=== PATIENT | female | born 1990 | race Caucasian/White ===

== ENCOUNTER 2017-12-03 17:01 | Emergency (ER) | payer SELFPAY ==
[2017-12-03 17:19] VITALS: BP 137/69
--- NOTE | 2017-12-03 17:23 | ER Document Report ---
ED General - General Chief Complaint: Sore Throat Stated Complaint: SORE THROAT Time Seen by Provider: 12/03/17 17:22 Mode of Arrival: Ambulatory Information source: Patient TRAVEL OUTSIDE OF THE [place] IN LAST 30 DAYS: No - HPI Notes: 27-year-old female presents today with complaints of sore throat 1 day, reports pain with swallowing. Eating and drinking without issues. 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 Denies any fevers or chills. Has been drinking and eating without issues. Denies any rashes. Worse with time, nothing makes better. States pain is 4 out of 10. Denies fevers, chills, chest pain,palpitations, shortness of breath, difficulty swallowing foods, trismus, dyspnea, nausea, vomiting, diarrhea, abdominal pain, hematuria,blurred vision, double vision, loss of vision, speech changes, LH, dizziness, syncope, headaches, wheezing, ST, URI, neck pain, weakness, bowel or bladder dysfunction, saddle anesthesia, numbness or tingling in bilateral upper or lower extremities equally, muscle paralysis, weakness in bilateral upper or lower extremities equally or rash. Denies IV drug use. - Related Data Allergies/Adverse Reactions: No Known Allergies Allergy (Unverified 12/03/17 17:14) Past Medical History - General Information source: Patient - Social History Smoking Status: Never Smoker Family History: Reviewed & Not Pertinent Review of Systems - Review of Systems Notes: REVIEW OF SYSTEMS: CONSTITUTIONAL : Denies fever, chills, or sweats. Denies recent illness. EENT: Denies eye, ear, throat, or mouth pain or symptoms. Denies nasal or sinus congestion or discharge. Reports sore throat. Denies tongue, or mouth swelling or difficulty swallowing. CARDIOVASCULAR: Denies chest pain. Denies palpitations or racing or irregular heart beat. Denies ankle edema. RESPIRATORY: Denies cough, cold, or chest congestion. Denies shortness of breath, difficulty breathing, or wheezing. GASTROINTESTINAL: Denies abdominal pain or distention. Denies nausea, vomiting , or diarrhea. Denies blood in vomitus, stools, or per rectum. Denies black, tarry stools. Denies constipation. GENITOURINARY: Denies difficulty urinating, painful urination, burning, frequency, blood in urine, or discharge. FEMALE GENITOURINARY: Denies vaginal bleeding, heavy or abnormal periods, irregular periods. Denies vaginal discharge or odor. MUSCULOSKELETAL: Denies back or neck pain or stiffness. Denies joint pain or swelling. SKIN: Denies rash, lesions or sores. HEMATOLOGIC : Denies easy bruising or bleeding. LYMPHATIC: Denies swollen, enlarged glands. NEUROLOGICAL: Denies confusion or altered mental status. Denies passing out or loss of consciousness. Denies dizziness or lightheadedness. Denies headache. Denies weakness or paralysis or loss of use of either side. Denies problems with gait or speech. Denies sensory loss, numbness, or tingling. Denies seizures. PSYCHIATRIC: Denies anxiety or stress. Denies depression, suicidal ideation, or homicidal ideation. ALL OTHER SYSTEMS REVIEWED AND NEGATIVE. Dictation was performed using TDX voice recognition software Physical Exam - Vital signs Vitals: Temp Pulse Resp BP Pulse Ox 99.1 F 95 16 137/69 H 99 12/03/17 17:17 12/03/17 17:17 12/03/17 17:17 12/03/17 17:17 12/03/17 17:17 - Notes Notes: PHYSICAL EXAMINATION: GENERAL: Well-appearing, well-nourished and in no acute distress. HEAD: Atraumatic, normocephalic. EYES: Pupils equal round and reactive to light, extraocular movements intact, conjunctiva are normal. ENT: Nares patent, oropharynx clear without exudates. Moist mucous membranes. tympanic membranes are normal appearing with pearly color, normal-appearing landmarks and normal light reflex. Hearing is grossly intact. The nasal mucosa is moist. The septum is midline. There is no evidence of septal hematoma. The turbinates are without abnormality. No obvious abnormalities to the lips. The teeth are unremarkable. The gingivae are without any obvious evidence of infection. The oral mucosa is moist and pink. There are no obvious masses to the hard or soft palate. The uvula is midline. The salivary glands appear unremarkable. The tongue is midline. The posterior pharynx is without erythema or exudate. The tonsils are normal appearing. No swelling no erythema no exudate no angioedema no drooling no trismus bilateral arches equal. Uvula midline. NECK: Normal range of motion, supple without lymphadenopathy LUNGS: Breath sounds clear to auscultation bilaterally and equal. No wheezes rales or rhonchi. HEART: Regular rate and rhythm without murmurs ABDOMEN: Soft, nontender, nondistended abdomen. No guarding, no rebound. No masses appreciated. Female : deferred Musculoskeletal: Normal range of motion, no pitting or edema. No cyanosis. NEUROLOGICAL: Cranial nerves grossly intact. Normal speech, normal gait. Normal sensory, motor exams PSYCH: Normal mood, normal affect. SKIN: Warm, Dry, normal turgor, no rashes or lesions noted. Course - Re-evaluation Re-evalutation: 12/03/17 18:24 Patient is a employee at a [employer], high likelihood of having strep throat. Will empirically treat her, throat culture has been ordered. Rapid strep is negative. Advised patient to use salt water gargles, take [id number] ibuprofen and Tylenol as needed for pain. I asked patient if any symptoms become worse return to the emergency room After performing a Medical Screening Examination, I estimate there is LOW risk for ACUTE CORONARY SYNDROME, retropharyngeal abscess, Peritonsillar abscess, PULMONARY EMBOLI, RESPIRATORY FAILURE, SEPSIS OR MENINGITIS, thus I consider the discharge disposition reasonable. I have reevaluated this patient multiple times and no significant life threatening changes are noted. The patient and I have discussed the diagnosis and risks, and we agree with discharging home with close follow-up. We also discussed returning to the Emergency Department immediately if new or worsening symptoms occur. We have discussed the symptoms which are most concerning (e.g., changing or worsening pain, trouble swallowing or breathing, neck stiffness, fever) that necessitate immediate return. - Vital Signs Vital signs: Temp Pulse Resp BP Pulse Ox 99.1 F 95 16 137/69 H 99 12/03/17 17:17 12/03/17 17:17 12/03/17 17:17 12/03/17 17:17 12/03/17 17:17 Discharge - Discharge Clinical Impression: Pharyngitis Qualifiers: Pharyngitis/tonsillitis etiology: other specified organisms Qualified Code(s): J02.8 - Acute pharyngitis due to other specified organisms Condition: Good Disposition: HOME, SELF-CARE Instructions: Strep Throat ([facility]), Sore Throat ([facility]) Additional Instructions: Sore Throat Sore throats may be caused by viruses, bacteria, or fungi. Most are due to a virus, and must get better on their own. Bacterial sore throats, particularly those due to "strep," need treatment with antibiotics. If an antibiotic is prescribed, be sure to take the medication for a full 10 days. Failure to take the antibiotic can result in complications such as rheumatic fever. Sometimes, an injection of antibiotics is given instead of pills or liquid. This single "shot" is equal in effectiveness to the oral medication. To relieve symptoms, take acetaminophen for pain. Sip clear liquids frequently, or eat popsicles or ice chips. Anesthetic sprays or lozenges may help. Make sure the air in the room is not too dry. Avoid using decongestants or antihistamines. Call the doctor if there is no improvement in two days, or if you have difficulty breathing, increasing throat pain, high fever, rash, or frequent vomiting. Return immediately for any new or worsening symptoms Such as fever, chills, difficulty swallowing, drooling neck pain, or any worsening symptoms, Follow up with primary care provider, call tomorrow to make followup appointment. Prescriptions: Amoxicillin Trihydrate [Amoxil 500 mg Capsule] 500 mg PO TID #30 capsule Referrals: JOE MORALES MD [Primary Care Provider] - Follow up in 3-5 days
== END 2017-12-03 18:26 | disposition home or self-care (01) ==
LOC: ER 17:01
DX: J02.9 Acute pharyngitis, unspecified (principal); Z20.818 Contact with and (suspected) exposure to other bacterial communicable diseases
CPT/HCPCS: 87070; 87880; 99283

== ENCOUNTER 2018-01-18 14:25 | Emergency (ER) | payer SELFPAY ==
[2018-01-18 14:37] VITALS: BP 125/67
--- NOTE | 2018-01-18 14:53 | ER Document Report ---
ED Neck/Back Problem - General Chief Complaint: Neck Pain >24hrs old Stated Complaint: HEAD AND NECK PAIN Time Seen by Provider: 01/18/18 14:42 Notes: Patient is a 27-year-old female complaining of right-sided neck pain 3 days. Patient denies any trauma, fever, radiculopathy or paresthesia. Pain is aggravated with any head movement TRAVEL OUTSIDE OF THE [place] IN LAST 30 DAYS: No - HPI Patient complains to provider of: Pain, Neck Onset: Other - 3 days Timing: Constant Quality of pain: Achy Recent injury: No Associated symptoms: None Exacerbated by: Movement of neck Relieved by: Nothing Similar symptoms previously: No Recently seen / treated by doctor: No - Related Data Allergies/Adverse Reactions: No Known Allergies Allergy (Verified 01/18/18 14:26) Past Medical History - General Information source: Patient - Social History Smoking Status: Never Smoker Chew tobacco use (# tins/day): No Frequency of alcohol use: None Drug Abuse: None Lives with: Family Family History: Reviewed & Not Pertinent Patient has suicidal ideation: No Patient has homicidal ideation: No - Medical History Medical History: Negative Renal/ Medical History: Denies: Hx Peritoneal Dialysis Review of Systems - Review of Systems Constitutional: No symptoms reported EENT: No symptoms reported Cardiovascular: No symptoms reported Respiratory: No symptoms reported Gastrointestinal: No symptoms reported Genitourinary: No symptoms reported Female Genitourinary: No symptoms reported Musculoskeletal: See HPI Skin: No symptoms reported Hematologic/Lymphatic: No symptoms reported Neurological/Psychological: No symptoms reported Physical Exam - Vital signs Vitals: Temp Pulse Resp BP Pulse Ox 98.2 F 74 16 125/67 98 01/18/18 14:36 01/18/18 14:36 01/18/18 14:36 01/18/18 14:36 01/18/18 14:36 Interpretation: Normal - General General appearance: Appears well, Alert - HEENT Head: Normocephalic, Atraumatic Eyes: Normal Pupils: PERRL Neck: Other - Focal right trapezius muscle tenderness. No cervical tenderness - Respiratory Respiratory status: No respiratory distress Chest status: Nontender Breath sounds: Normal Chest palpation: Normal - Cardiovascular Rhythm: Regular Heart sounds: Normal auscultation Murmur: No - Abdominal Inspection: Normal Distension: No distension Bowel sounds: Normal Tenderness: Nontender Organomegaly: No organomegaly - Back Back: Normal, Nontender - Extremities General upper extremity: Normal inspection, Nontender, Normal color, Normal ROM , Normal temperature General lower extremity: Normal inspection, Nontender, Normal color, Normal ROM , Normal temperature, Normal weight bearing. No: Jose Juan's sign - Neurological Neuro grossly intact: Yes Cognition: Normal Orientation: AAOx4 [place] Coma Scale Eye Opening: Spontaneous [place] Coma Scale Verbal: Oriented [place] Coma Scale Motor: Obeys Commands [place] Coma Scale Total: 15 Speech: Normal Motor strength normal: LUE, RUE, LLE, RLE Sensory: Normal - Psychological Associated symptoms: Normal affect, Normal mood - Skin Skin Temperature: Warm Skin Moisture: Dry Skin Color: Normal Course - Re-evaluation Re-evalutation: 01/18/18 14:51 History and physical are consistent with a torticollis. Patient has focal trapezius muscle tenderness. Patient is showing no symptoms of meningitis or sepsis. I will write a short course of muscle relaxant and anti-inflammatory medicine. I recommended topical anesthetic and gentle stretches as demonstrated. Home care, primary care follow-up and ED return precautions discussed with patient. Patient acknowledges understanding and is stable for discharge - Vital Signs Vital signs: Temp Pulse Resp BP Pulse Ox 98.2 F 74 16 125/67 98 01/18/18 14:36 01/18/18 14:36 01/18/18 14:36 01/18/18 14:36 01/18/18 14:36 Discharge - Discharge Clinical Impression: Neck pain, Muscle strain Condition: Stable Disposition: HOME, SELF-CARE Instructions: Muscle Strain ([facility]), Muscle Relaxers ([facility]), Ibuprofen (General) ( [facility]), Warm Packs ([facility]) Additional Instructions: Your pain is consistent with a trapezius muscle strain I recommend alternating ice and heat to the area as well as a topical anesthetic such as Aspercreme with lidocaine I am prescribing a short course of muscle relaxant and anti-inflammatory medication. Take those as prescribed follow-up with your primary care provider if pain persists more than 10 days. Return to the ER for any worsening Prescriptions: Ibuprofen [Motrin 800 Mg Tablet] 800 mg PO Q6H #20 tablet Methocarbamol [Robaxin 500 Mg Tablet] 1,000 mg PO Q6 #30 tablet Forms: Return to Work
== END 2018-01-18 15:02 | disposition home or self-care (01) ==
LOC: ER 14:25
DX: T14.8XXA Other injury of unspecified body region, initial encounter (principal); M54.2 Cervicalgia; X58.XXXA Exposure to other specified factors, initial encounter
CPT/HCPCS: 99283

== ENCOUNTER 2018-05-08 09:53 | Emergency (ER) | payer SELFPAY ==
[2018-05-08 09:58] VITALS: BP 129/71
--- NOTE | 2018-05-08 10:45 | ER Document Report ---
ED Extremity Problem, Lower - General Chief Complaint: Leg Swelling Stated Complaint: LEG AND ANKLE SWELLING Time Seen by Provider: 05/08/18 10:05 Mode of Arrival: Ambulatory Information source: Patient Notes: 27-year-old female presented to ED for complaint of pain from her knee to her toe bilaterally more painful on the right. She does not smoke she does not use any hormone she has not been on any recent trip she has not had any surgery and she does not have a history of cancer. She states this been going on for over a month now and it is now more painful on the right than the left. TRAVEL OUTSIDE OF THE [place] IN LAST 30 DAYS: No - HPI Patient complains to provider of: Pain, Swelling. No: Injury Location: Leg Occurred: Other Onset/Duration: Gradual - Was in a month Quality of pain: Pressure Severity: Moderate Pain Level: 3 Context: Other - Pain in bilateral legs worse on the right no risk factors for DVT Recent injury: No Associated symptoms: Painful ambulation, Other - Pain is been for more than a month no risk factors for DVT Exacerbated by: Other - When laying down Relieved by: Other - When up and walking - Related Data Allergies/Adverse Reactions: No Known Allergies Allergy (Verified 05/08/18 09:54) Past Medical History - General Information source: Patient - Social History Smoking Status: Never Smoker Cigarette use (# per day): No Chew tobacco use (# tins/day): No Smoking Education Provided: No Frequency of alcohol use: Occasional Drug Abuse: None Lives with: Family Family History: Reviewed & Not Pertinent Patient has suicidal ideation: No Patient has homicidal ideation: No - Past Medical History Cardiac Medical History: Reports: None Pulmonary Medical History: Reports: None EENT Medical History: Reports: None Neurological Medical History: Reports: None Endocrine Medical History: Reports: None Renal/ Medical History: Reports: None Malignancy Medical History: Reports: None GI Medical History: Reports: None Musculoskeletal Medical History: Reports None Skin Medical History: Reports None Psychiatric Medical History: Reports: None Traumatic Medical History: Reports: None Infectious Medical History: Reports: None Surgical Hx: Negative Past Surgical History: Reports: None - Immunizations Immunizations up to date: Yes Review of Systems - Review of Systems Constitutional: No symptoms reported EENT: No symptoms reported Cardiovascular: No symptoms reported Respiratory: No symptoms reported Gastrointestinal: No symptoms reported Genitourinary: No symptoms reported Female Genitourinary: No symptoms reported Musculoskeletal: Other - Pain bilateral lower legs Skin: No symptoms reported Hematologic/Lymphatic: No symptoms reported Neurological/Psychological: No symptoms reported -: Yes All other systems reviewed and negative Physical Exam - Vital signs Vitals: Temp Pulse Resp BP Pulse Ox 97.7 F 102 H 16 129/71 H 99 05/08/18 09:57 05/08/18 09:57 05/08/18 09:57 05/08/18 09:57 05/08/18 09:57 Interpretation: Normal - General General appearance: Appears well, Alert - HEENT Head: Normocephalic, Atraumatic Eyes: Normal Pupils: PERRL - Respiratory Respiratory status: No respiratory distress Chest status: Nontender Breath sounds: Normal Chest palpation: Normal - Cardiovascular Rhythm: Regular Heart sounds: Normal auscultation Murmur: No - Abdominal Inspection: Normal Distension: No distension Bowel sounds: Normal Tenderness: Nontender Organomegaly: No organomegaly - Back Back: Normal, Nontender - Extremities General upper extremity: Normal inspection, Nontender, Normal color, Normal ROM , Normal temperature General lower extremity: Normal inspection, Nontender, Normal color, Normal ROM , Normal temperature, Normal weight bearing. No: Jose Juan's sign Calf: Tender - Front of the legs. No: Ecchymosis Ankle: No: Tender, Ecchymosis, Edema Foot: No evidence of FB, Other - Refills less than 3 seconds good pedal pulses. No: Tender, Abrasion, Deformity, Ecchymosis, Edema, Instability, Laceration, Metatarsal compress. pain, Nail injury, Navicular tenderness, Puncture wound, Tender 5th metatarsal - Neurological Neuro grossly intact: Yes Cognition: Normal Orientation: AAOx4 [place] Coma Scale Eye Opening: Spontaneous [place] Coma Scale Verbal: Oriented [place] Coma Scale Motor: Obeys Commands [place] Coma Scale Total: 15 Speech: Normal Motor strength normal: LUE, RUE, LLE, RLE Sensory: Normal - Psychological Associated symptoms: Normal affect, Normal mood - Skin Skin Temperature: Warm Skin Moisture: Dry Skin Color: Normal Course - Vital Signs Vital signs: Temp Pulse Resp BP Pulse Ox 97.7 F 102 H 16 129/71 H 99 05/08/18 10:53 05/08/18 10:53 05/08/18 10:53 05/08/18 10:53 05/08/18 10:53 Discharge - Discharge Clinical Impression: Bilateral leg pain Condition: Stable Disposition: HOME, SELF-CARE Additional Instructions: Leg Pain, Nonspecific We did not find an obvious cause for your leg pain. There's no sign of blood clot, infection, or other serious disease. Possible causes of vague leg pain include muscle or joint inflammation, disc disease in the lower back, pressure on the nerves in the back, or reduced blood flow through the arteries of the leg. Rest the leg. Pain can be eased with an antiinflammatory pain medicine such as ibuprofen. If the pain involves a small area, a heating pad might help. Call the doctor or return if the leg becomes swollen, weak, discolored, or increasingly painful, or if you develop any other significant change in your health. Ibuprofen Ibuprofen is an excellent, safe drug for pain control. In addition, it has potent antiinflammatory effects which are beneficial, especially in the treatment of injuries, arthritis, or tendonitis. It's best to take ibuprofen with food. Persons with ulcer disease or allergy to aspirin should notify their physician of this before taking ibuprofen. Take the medication exactly as prescribed. Don't take additional doses unless instructed to do so by your doctor. If you develop wheezing, shortness of breath, hives, faintness, stomach pain, vomiting, or dark black stools, return for re-evaluation at once. FOLLOW-UP CARE: If you have been referred to a physician for follow-up care, call the physician s office for an appointment as you were instructed or within the next two days. If you experience worsening or a significant change in your symptoms, notify the physician immediately or return to the Emergency Department at any time for re-evaluation. Forms: Elevated Blood Pressure Referrals: JOE MORALES MD [Primary Care Provider] - Follow up tomorrow
== END 2018-05-08 10:55 | disposition home or self-care (01) ==
LOC: ER 09:53
DX: M79.662 Pain in left lower leg (principal); M79.661 Pain in right lower leg
CPT/HCPCS: 99283

== ENCOUNTER 2019-05-25 09:18 | Outpatient (CLI) | payer OTHER ==
[2019-05-25] MEDS ORDERED: RINGERS SOLUTION,LACTATED 1,000 ML IV ONE (09:35)
[2019-05-25] MEDS ORDERED: RINGERS SOLUTION,LACTATED 1,000 ML IV PRN (09:35)
[2019-05-25] MEDS ORDERED: ONDANSETRON HCL INJ/PF 4 MG/2 ML SDV IV ONE (09:36)
[2019-05-25] MEDS ORDERED: ONDANSETRON HCL INJ/PF 4 MG/2 ML SDV ONE (09:50)
[2019-05-25 10:18] LABS: APPEARANCE,URINE SLIGHTLY-CLOUDY; BILIRUBIN,URINE NEGATIVE (NEGATIVE); COLOR,URINE YELLOW; GLUCOSE, URINE NEGATIVE (NEGATIVE); KETONES,URINE 20 mg/dL (NEGATIVE); LEUKOCYTE ESTERASE,URINE NEGATIVE (NEGATIVE); NITRITE,URINE NEGATIVE (NEGATIVE); PROTEIN,URINE NEGATIVE (NEGATIVE); URINE SPECIFIC GRAVITY 1.024; UROBILINOGEN,URINE NEGATIVE mg/dL (<2.0)
--- NOTE | 2019-05-25 10:43 | Non Stress Test Report ---
Non Stress Test Datetime Report Generated by CPN: 05/25/2019 10:43 DEMOGRAPHIC EGA NST: 34.0 INDICATION Indication for Study: Ordered by Provider VITAL SIGNS Temperature - NST: 99.1 Pulse - NST: 97 RESP - NST: 15 NBPSYS NST: 131 NBPDIA NST: 63 MONITORING Monitor Explained: Monitor Explained; Test Explained; Patient Verbalized Understanding Time on Monitor: 05/25/2019 10:15 Time off Monitor: 05/25/2019 10:35 NST Duration: 20 NST INTERVENTIONS NST Interventions: PO Hydration; IV Fluids Physician Notified NST: N. Mills CNM BABY A: [id number] BABY A Movement : Present Contraction Frequency : irritability FHR Baseline : 140 Accelerations : 15X15 Decelerations : None Variability : Moderate 6-25bpm NST Review: Meets Criteria for Reactive NST NST Review and Verified By : Ramiro Joshua RN NST Results: Reactive NST REPORT Report Trigger: Send Report
[2019-05-25 11:09] LABS: ABSOLUTE EOSINOPHILS # (AUTO) 0.1 10^3/uL (0.0-0.6); ABSOLUTE LYMPHOCYTES (AUTO) 0.5 10^3/uL (0.5-4.7); ABSOLUTE MONOCYTES (AUTO) 0.6 10^3/uL (0.1-1.4); ABSOLUTE NEUT (AUTO) 8.9 10^3/uL (1.7-8.2); BASOPHILS % (AUTO) 0.3 % (0-2); EOSINOPHILS % (AUTO) 0.7 % (0-6); HEMATOCRIT 33.8 % (36.0-47.0); HEMOGLOBIN 11.3 g/dL (12.0-15.5); LYMPHOCYTES % (AUTO) 5.4 % (13-45); MEAN CORPUSCULAR HEMOGLOBIN 27.7 pg (27.0-33.4); MEAN CORPUSCULAR HGB CONC 33.4 g/dL (32.0-36.0); MEAN CORPUSCULAR VOLUME 83 fl (80-97); MONOCYTES % (AUTO) 5.8 % (3-13); PLATELET COUNT 184 10^3/uL (150-450); RED BLOOD COUNT 4.08 10^6/uL (3.72-5.28); RED CELL DISTRIBUTION WIDTH 12.9 % (11.5-14.0); SEGMENTED NEUTROPHILS % (AUTO) 87.8 % (42-78); TOTAL CELLS COUNTED % (AUTO) 100 %; WHITE BLOOD COUNT 10.1 10^3/uL (4.0-10.5)
[2019-05-25 11:27] LABS: ALKALINE PHOSPHATASE 95 U/L (38-126); ANION GAP 7 (5-19); ASPARTATE AMINO TRANSFERASE 21 U/L (14-36); BILIRUBIN,DIRECT 0.1 mg/dL (0.0-0.4); BILIRUBIN,TOTAL 0.4 mg/dL (0.2-1.3); BLOOD UREA NITROGEN 11 mg/dL (7-20); CALCIUM 8.4 mg/dL (8.4-10.2); CARBON DIOXIDE 21 mmol/L (22-30); CHLORIDE 107 mmol/L (98-107); GLUCOSE 97 mg/dL (75-110); POTASSIUM 4.1 mmol/L (3.6-5.0); TOTAL PROTEIN 5.5 g/dL (6.3-8.2)
== END 2019-05-25 11:42 | disposition home or self-care (01) ==
LOC: LC 09:18
PROVIDERS: ATTEND Obstetrics & Gynecology
PROC: 4A1HXCZ Monitoring of Products of Conception, Cardiac Rate, External Approach (ICD-10-PCS; principal; 2019-05-25)
DX: O99.613 Diseases of the digestive system complicating pregnancy, third trimester (principal); K52.9 Noninfective gastroenteritis and colitis, unspecified; O99.283 Endocrine, nutritional and metabolic diseases complicating pregnancy, third trimester; E86.0 Dehydration; Z3A.34 34 weeks gestation of pregnancy
CPT/HCPCS: 59025; 36415; 85025; 80053; 81001; J2405

== ENCOUNTER 2019-07-02 16:14 | Outpatient (CLI) | payer OTHER ==
--- NOTE | 2019-07-02 16:51 | Non Stress Test Report ---
Non Stress Test Datetime Report Generated by CPN: 07/02/2019 16:50 DEMOGRAPHIC EGA NST: 39.3 INDICATION Indication for Study: Ordered by Provider MONITORING Monitor Explained: Monitor Explained; Test Explained; Patient Verbalized Understanding Time on Monitor: 07/02/2019 16:21 Time off Monitor: 07/02/2019 16:41 NST Duration: 20 NST INTERVENTIONS NST Interventions: PO Hydration Physician Notified NST: j. allan cnm BABY A: [id number] BABY A Movement : Present Contraction Frequency : 7 FHR Baseline : 140 Accelerations : 15X15 Variability : Moderate 6-25bpm NST Review: Meets Criteria for Reactive NST NST Review and Verified By : RAYNA Molina Results: Reactive NST REPORT Report Trigger: Send Report
== END 2019-07-02 16:50 | disposition home or self-care (01) ==
LOC: LC 16:14
PROVIDERS: ATTEND Obstetrics & Gynecology
PROC: 4A1HXCZ Monitoring of Products of Conception, Cardiac Rate, External Approach (ICD-10-PCS; principal; 2019-07-02)
DX: Z34.93 Encounter for supervision of normal pregnancy, unspecified, third trimester (principal)
CPT/HCPCS: 59025

== ENCOUNTER 2019-07-02 21:05 | Inpatient (IN) | payer OTHER ==
[2019-07-02 21:50] LABS: APPEARANCE,URINE SLIGHTLY-CLOUDY; BILIRUBIN,URINE NEGATIVE (NEGATIVE); COLOR,URINE YELLOW; GLUCOSE, URINE NEGATIVE (NEGATIVE); KETONES,URINE NEGATIVE (NEGATIVE); LEUKOCYTE ESTERASE,URINE NEGATIVE (NEGATIVE); NITRITE,URINE NEGATIVE (NEGATIVE); PROTEIN,URINE NEGATIVE (NEGATIVE); URINE SPECIFIC GRAVITY 1.024; UROBILINOGEN,URINE NEGATIVE mg/dL (<2.0)
[2019-07-02 21:53] LABS: ABSOLUTE EOSINOPHILS # (AUTO) 0.3 10^3/uL (0.0-0.6); ABSOLUTE LYMPHOCYTES (AUTO) 1.8 10^3/uL (0.5-4.7); ABSOLUTE NEUT (AUTO) 8.2 10^3/uL (1.7-8.2); BASOPHILS % (AUTO) 0.3 % (0-2); EOSINOPHILS % (AUTO) 2.7 % (0-6); HEMATOCRIT 34.2 % (36.0-47.0); HEMOGLOBIN 11.5 g/dL (12.0-15.5); LYMPHOCYTES % (AUTO) 16.3 % (13-45); MEAN CORPUSCULAR HEMOGLOBIN 27.6 pg (27.0-33.4); MEAN CORPUSCULAR HGB CONC 33.7 g/dL (32.0-36.0); MEAN CORPUSCULAR VOLUME 82 fl (80-97); MONOCYTES % (AUTO) 8.4 % (3-13); PLATELET COUNT 252 10^3/uL (150-450); RED BLOOD COUNT 4.18 10^6/uL (3.72-5.28); RED CELL DISTRIBUTION WIDTH 13.7 % (11.5-14.0); SEGMENTED NEUTROPHILS % (AUTO) 72.3 % (42-78); TOTAL CELLS COUNTED % (AUTO) 100 %; WHITE BLOOD COUNT 11.3 10^3/uL (4.0-10.5)
[2019-07-02 22:07] LABS: URINE AMPHETAMINES SCREEN NEGATIVE; URINE BARBITURATES SCREEN NEGATIVE; URINE BENZODIAZEPINES SCREEN NEGATIVE; URINE COCAINE SCREEN NEGATIVE; URINE MARIJUANA (THC) SCREEN NEGATIVE; URINE METHADONE SCREEN NEGATIVE; URINE PHENCYCLIDINE SCREEN NEGATIVE
[2019-07-02] MEDS ORDERED: PENICILLIN G POTASSIUM 5,000,000 UNIT in DEXTROSE 5%-WATER 100 ML IV ONE (22:11)
[2019-07-02] MEDS ORDERED: RINGERS SOLUTION,LACTATED 300 ML IV ONE (22:11)
[2019-07-02] MEDS ORDERED: ACETAMINOPHEN 325 MG TABLET PO PRN (22:11)
[2019-07-02] MEDS ORDERED: ZOLPIDEM TARTRATE 5 MG TABLET PO PRN (22:11)
[2019-07-02] MEDS ORDERED: RINGERS SOLUTION,LACTATED 1,000 ML IV PRN (22:11)
[2019-07-02] MEDS ORDERED: MAG HYDROX/AL HYDROX/SIMETH SUSP 30 ML UDCUP PO PRN (22:11)
[2019-07-02] MEDS ORDERED: DINOPROSTONE 10 MG VAGINAL INSERT.SR PV ONE (22:11)
[2019-07-02] MEDS ORDERED: DINOPROSTONE 10 MG VAGINAL INSERT.SR ONE (22:15)
--- NOTE | 2019-07-02 23:47 | Admission Physical ---
Datetime Report Generated by CPN: 07/02/2019 23:47 CURRENT ADMISSION Chief Complaint: Scheduled Induction of Labor Indication for Induction: Macrosomia Indication for Induction- Other: GDM Admit Impression : Term, Intrauterine ; Intact Membranes Admit Plan: Admit to Unit; Initiate Labor Induction Protocol ALLERGIES Medication Allergies: No Medication Allergies: No Known Allergies (07/02/2019) Latex: No Latex Allergies Food Allergies: none Environmental Allergies: pollen, dust OBSTETRICAL HISTORY EDC: 07/06/2019 00:00 : 1 Para: 0 Term: 0 : 0 SAB: 0 IAB: 0 Ectopic: 0 Livin Cesareans: 0 VBACs: 0 Multiple Births: 0 Gestational Diabetes: Yes Rh Sensitization: No Incompetent Cervix: No SHERYL: No Infertility: No ART Treatment: No Uterine Anomaly: No IUGR: No Hx Previous C/S: No Macrosomia: No Hx Loss/Stillborn: No PIH: No Hx : No Placenta Previa/Abruption: No Depression/PP Depression: No PTL/PROM: No Post Hemorrhage: No Current Procedures: Ultrasound; NST Obstetrical History Comments: G-1 GDM on meds, current SEE RECORDS Alcohol: No Marijuana : No Cocaine: No Other Illicit Drugs: No Cigarettes: Never Smoker. 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 Heart Disease: No Hosp/Surgery: No Autoimmune Disorder: No Anesthetic Complications: No Kidney Disease: No Abnormal Pap Smear: No Neuro/Epilepsy: No Psychiatric Disorders: No Other Medical Diseases: No Hepatitis/Liver Disease: No Significant Family History: No Varicosities/Phlebitis: No Trauma/Violence : No Thyroid Dysfunction: No INFECTIOUS HISTORY Gonorrhea: No Genital Herpes: No Chlamydia: No Tuberculosis: No Syphilis: No Hepatitis: No HIV/AIDS Exposure: No Rash or Viral Illness: No HPV: No PHYSICAL EXAM General: Normal HEENT: Normal Neurologic: Normal Thyroid: Normal Heart: Normal Lungs: Normal Breast: Deferred Back: Normal Abdomen: Normal Genitourinary Exam: Normal Extremities: Normal DTRs: Normal Pelvic Type: Adequate Vital Signs: Reviewed VAGINAL EXAM Dilatation: 0 Effacement: 0 Station: -3 MEMBRANES Membranes: Intact FETUS A EGA: 39.3 Monitoring: External US FHR- Baseline: 140 Variability: Moderate 6-25bpm Decelerations: None FHR Category: Category I Presentation: Vertex Admit Comment: Estimated weight is 10 lb 12 oz. PLANS FOR LABOR AND DELIVERY Labor and Delivery: None Pain Management: Medications; Epidural Feeding Preference: Breast Benefit of Breast Feed Discussed: Yes Circumcision: N/A INFORMED CONSENT Signature: with User ID: [email or web address]
[2019-07-03] MEDS ORDERED: MISOPROSTOL 0.1 MG TABLET ONE (11:52)
[2019-07-03] MEDS: MISOPROSTOL 0.1 MG TABLET PV SCH ×2 (12:27→16:23)
[2019-07-03] MEDS: MISOPROSTOL 0.1 MG TABLET PO SCH ×2 (12:27→16:23)
[2019-07-03] MEDS ORDERED: CEFAZOLIN 1 GM/D5W RTU 2 GM/100 ML RTUPB IV ONE (13:44)
[2019-07-03] MEDS ORDERED: CITRIC ACID/SODIUM CITRATE ORAL SOLN 15 ML UDCUP ONE (13:44)
[2019-07-03] MEDS ORDERED: OXYTOCIN 10 UNIT/ML VIAL ONE ×2 (14:11→14:52)
[2019-07-03] MEDS ORDERED: OXYTOCIN/NORMAL SALINE 0 UNIT/0 ML RTUINJ ONE (14:12)
[2019-07-03] MEDS ORDERED: ONDANSETRON HCL INJ/PF 4 MG/2 ML SDV ONE (14:12)
[2019-07-03] MEDS ORDERED: ACETAMINOPHEN 1,000 MG/100 ML RTUPB IV ONE (14:12)
[2019-07-03] MEDS ORDERED: EPHEDRINE SULFATE INJ 50 MG/1 ML AMPULE ONE (14:12)
[2019-07-03] MEDS ORDERED: FENTANYL CITRATE INJ/PF 100 MCG/2 ML AMPUL ONE (14:12)
[2019-07-03] MEDS ORDERED: MIDAZOLAM 2 MG/2 ML INJ ONE (14:12)
[2019-07-03] MEDS ORDERED: KETOROLAC TROMETHAMINE INJ/PF 30 MG/1 ML SDV ONE (14:12)
[2019-07-03] MEDS ORDERED: METHYLERGONOVINE MALEATE INJ/PF 0.2 MG/1 ML AMPULE ONE (14:52)
[2019-07-03] MEDS ORDERED: MEASLES,MUMPS&RUBELLA VACC/PF 0.5 ML VIAL SUBCUT PRN (15:31)
[2019-07-03] MEDS ORDERED: OXYCODONE-ACETAMINOPHEN 5-325 MG TABLET PO PRN (15:31)
[2019-07-03] MEDS ORDERED: RINGERS SOLUTION,LACTATED 1,000 ML IV PRN (15:31)
[2019-07-03] MEDS ORDERED: OXYTOCIN/NORMAL SALINE 20 UNIT/1,000 ML RTUINJ IV PRN (15:31)
[2019-07-03] MEDS ORDERED: MORPHINE SULFATE 10 MG/ML INJ IV PRN (15:31)
[2019-07-03] MEDS ORDERED: ACETAMINOPHEN 1,000 MG/100 ML RTUPB IV PRN (15:31)
[2019-07-03] MEDS ORDERED: PROMETHAZINE HCL INJ 25 MG/1 ML VIAL IV PRN (15:31)
[2019-07-03] MEDS ORDERED: ACETAMINOPHEN 325 MG TABLET PO PRN (15:31)
[2019-07-03] MEDS ORDERED: DIPH/PERTUSS(ACELL)/TETANUS VAC/PF 0.5 ML SYR (>=10YO) IM PRN (15:31)
--- NOTE | 2019-07-03 15:39 | Operative Report ---
Operative Report DATE OF SURGERY: 07/03/19 PREOPERATIVE DIAGNOSIS: IUP @ 40 2/7, macrosomia, NRFHTs, A1DM POSTOPERATIVE DIAGNOSIS: same OPERATION: primary low transverse section SURGEON: CLARICE LESTER ANESTHESIA: Spinal COMPLICATIONS: none QUANTITATIVE BLOOD LOSS: 875 INTRAOPERATIVE FINDINGS: female cephalic, apgars 8/9, weight 11 lbs, 2 oz. PROCEDURE: PROCEDURE IN DETAIL: The patient was taken to the operating room, prepared and draped in a normal sterile fashion in a supine position with a leftward tilt. A transverse skin incision was made with a scalpel and carried through to the underlying layer of fascia with the same scalpel. The fascia was excised in the midline and extended laterally with Mal. The fascia was then dissected from the rectus muscle sharply with Mal and the rectus muscle was divided and the peritoneal cavity was entered sharply with the same Metzenbaum. With good visualization of the bladder and the uterus the bladder blade was inserted. The hysterotomy was nicked with a scalpel and extended laterally with surgeon finger fraction. The infant was then delivered atraumatically. The nose and mouth were suctioned with a suction bulb, the cord was clamped and cut and handed off to awaiting pediatricians. Cord blood was collected. The placenta was removed manually. The uterus was exteriorized and cleared of clots and debris. The hysterotomy was closed with 0 Monocryl in a running, locked fashion. A second layer of the same suture was used to imbricate to ensure hemostasis. The uterus was returned to the abdomen and peritoneal cavity was cleared of clots and debris. The rectus muscle and peritoneum were repaired with mattress stitch of 2-0 Chromic. The fascia was closed with 0-Vicryl. The subcutaneous layer was closed with plain catgut and the skin was closed with 4-0 Vicryl. The patient tolerated the procedure well. Sponge, lap, and needle counts correct x2 and the patient was taken to recovery in stable condition.
[2019-07-03] MEDS ORDERED: OXYTOCIN/NORMAL SALINE 20 UNIT/1,000 ML RTUINJ ONE (16:19)
[2019-07-03] MEDS: PENICILLIN G POTASSIUM 2,500,000 UNIT in DEXTROSE 5%-WATER 50 ML IV SCH ×3 (16:22→22:01)
--- NOTE | 2019-07-03 16:44 | Delivery Summary ---
Del Sum A-C Datetime Report Generated by CPN: 07/03/2019 16:43 DELIVERY PERSONNEL DELIVERY PERSONNEL: [id number] Delivery Doctor:: Kelsi Lewis MD Anesthesiologist:: John Reynolds MD OIL TANKER CAPTAIN:: Laurent Schuler CRNA Labor and Delivery Nurse:: Alanis Cid RNsenior game designer Nurse:: Collin Murguia RN Six Pack Loader Operator:: Alanis Cid RN Metal Furniture Polisher:: Dr. Mayito Gamez Nursery Nurse:: Goldie Santa RN Copy Writer/SAMPLE PREP TECHNICIAN: ST Shoshana Copy Writer/SAMPLE PREP TECHNICIAN: Cindy Patel CST Additional Personnel: : RAYNA Roy MATERNAL INFORMATION Delivery Anesthesia: Spinal Medications After Delivery: Pitocin Bolus-Please Comment; Methergine 0.2mg IM Delivery QBL: 845 Maternal Complications: None LABOR SUMMARY EDC: 07/06/2019 00:00 No. Babies in Womb: 1 Attempted: No Labor Anesthesia: None LABOR INFORMATION Reason for Induction: Macrosomia; Other Reason for Induction- Other: GDM Cervical Ripening Agents: Cervidil; Cytotec @ Group B Beta Strep: positive Antibiotics # of Doses: 0 MEMBRANES Membranes Rupture Method: Artificial Amniotic Fluid Color: Clear Amniotic Fluid Amount: Moderate STAGES OF LABOR Stage 3 hr: 0 Stage 3 min: 2 VAGINAL DELIVERY Episiotomy: None Laceration #1: None Laceration Extension #1: N/A Laceration Repair: Not Applicable Sponge Count Correct: N/A CSECTION DELIVERY Primary Indication: Other Other Primary Indication: Macrosomia Secondary Indication: N/A CSection Urgency: Non-Scheduled CSection Incidence: Primary Labor: No Labor Elective: Elective CSection Incision: Lower Uterine Transverse BABY A INFORMATION Infant Delivery Date/Time: 07/03/2019 14:45 Method of Delivery: Born in Route : No : N/A Forceps: N/A Vacuum Extraction: N/A Shoulder Dystocia : No PRESENTATION/POSITION BABY A Presentation: Cephalic Cephalic Presentation: Vertex Breech Presentation: N/A PLACENTA INFORMATION BABY A Placenta Delivery Time : 07/03/2019 14:47 Placenta Method of Delivery: Manual Removal Placenta Status: Delivered SCORES BABY A Heart Rate 1 min: >100 bpm Resp Effort 1 min: Good Cry Reflex Irritability 1 min: Cough or Sneeze or Pulls Away Muscle Tone 1 min: Some Flexion of Extremities Color 1 min: Body Glandorf, Extremities Blue SCORE 1 MIN: 8 Heart Rate 5 min: >100 bpm Resp Effort 5 min: Good Cry Reflex Irritability 5 min: Cough or Sneeze or Pulls Away Muscle Tone 5 min: Active Motion Color 5 min: Body Glandorf, Extremities Blue SCORE 5 MIN: 9 INFANT INFORMATION BABY A Gestational Age at Delivery: 39.4 Gestational Status: Full Term- 39- 40.6 Weeks Infant Outcome : Liveborn Condition : Stable Infant Sex: Female IDENTIFICATION BABY A Verification Date/Time: 07/03/2019 14:47 ID Band Number: [id number] Mother's Name Verified: Yes Infant RN Verifying Infant: , RN and CliftonChristamarga, RN WEIGHT/LENGTH BABY A Birthweight (gm): 5075 Infant Weight (lb): 11 Infant Weight (oz): 3 Infant Length (in): 20.50 Infant Length (cm): 52.07 CORD INFORMATION BABY A No. Cord Vessels: 3 Nuchal Cord : N/A Cord Blood Taken: Yes-For Storage (Mom's Blood type +) Suction: None ASSESSMENT BABY A Infant Complications: None Physical Findings at Delivery: Within Normal Limits Infant Respirations: Appears Normal Skin to Skin: Yes Infant Care By: RAYNA Salter Transferred To: [facility]
[2019-07-03] MEDS: DOCUSATE SODIUM 100 MG CAPSULE PO SCH (18:35)
[2019-07-03] MEDS: OXYCODONE-ACETAMINOPHEN 5-325 MG TABLET PO PRN ×2 (18:35→22:42)
[2019-07-03] MEDS: IBUPROFEN 800 MG TABLET PO SCH (18:36)
[2019-07-03] MEDS: KETOROLAC TROMETHAMINE INJ/PF 30 MG/1 ML SDV IV SCH (21:52)
[2019-07-04] MEDS: SIMETHICONE 80 MG TAB.CHEW PO PRN ×2 (03:34→23:24)
[2019-07-04] MEDS: OXYCODONE-ACETAMINOPHEN 5-325 MG TABLET PO PRN ×3 (03:37→23:25)
[2019-07-04] MEDS: IBUPROFEN 800 MG TABLET PO SCH ×5 (04:39→23:24)
[2019-07-04] MEDS: PENICILLIN G POTASSIUM 2,500,000 UNIT in DEXTROSE 5%-WATER 50 ML IV SCH ×2 (04:39→06:04)
[2019-07-04] MEDS: KETOROLAC TROMETHAMINE INJ/PF 30 MG/1 ML SDV IV SCH ×3 (05:50→21:31)
[2019-07-04 08:06] LABS: HEMATOCRIT 34.2 % (36.0-47.0); HEMOGLOBIN 11.2 g/dL (12.0-15.5); MEAN CORPUSCULAR HEMOGLOBIN 26.9 pg (27.0-33.4); MEAN CORPUSCULAR HGB CONC 32.8 g/dL (32.0-36.0); MEAN CORPUSCULAR VOLUME 82 fl (80-97); PLATELET COUNT 204 10^3/uL (150-450); RED BLOOD COUNT 4.17 10^6/uL (3.72-5.28); RED CELL DISTRIBUTION WIDTH 13.6 % (11.5-14.0); WHITE BLOOD COUNT 13.8 10^3/uL (4.0-10.5)
[2019-07-04] MEDS: DOCUSATE SODIUM 100 MG CAPSULE PO SCH ×2 (10:27→17:49)
[2019-07-04] MEDS: PRENATAL VITAMIN W DHA CAPSULE PO SCH (10:27)
[2019-07-04] MEDS ORDERED: IRON SUCROSE COMPLEX INJ/PF 100 MG/5 ML SDV IV ONE ×2 (13:00→15:00)
--- NOTE | 2019-07-04 13:06 | PDOC PROGRESS REPORT ---
Subjective-OB Progress Note for:: 07/04/19 Subjective: 29yo G1 now P1 s/p primary ppd1. States pain well tolerated with medication, voiding and without difficulty. Some discomfort and shoulder, belly and back pain when walking in the hallway and found to be gas pain on Dr. Sellers's assessment. Reports no other concerns at this time. Physical Exam (OB) Vital Signs: Temp Pulse Resp BP Pulse Ox 98.0 F 92 18 126/78 H 99 07/04/19 11:53 07/04/19 11:53 07/04/19 11:53 07/04/19 11:53 07/04/19 11:53 Intake & Output 07/03/19 07/04/19 07/05/19 06:59 06:59 06:59 Intake Total 840 Output Total 900 Balance -60 Weight 139.9 kg - General General Appearance: Appears well In distress: None - PIH/Pre-Eclampsia Clonus: Negative Headache: Absent Epigastric Pain: No Visual Changes: No - Dressing Removed: Yes Incision: Dressing Closure Type: opsite - Lochia Lochia Amount: Scant < 10 ml Lochia Color: Rubra/Red - Abdomen Description: Tender Hernia Present: No Fundal Description: Firm, Midline Fundal Height: u/u - u/2 - Respiratory Respiratory Status: No respiratory distress - Extremities Upper extremity: Normal inspection Lower extremities: Normal inspection - Neurological Cognition: Normal Orientation: AAOx4 - Psychological Associated symptoms: Normal affect, Normal mood Objective-Diagnostic Laboratory: 07/04/19 07:23 07/04/19 07:23 WBC 13.8 H RBC 4.17 Hgb 11.2 L Hct 34.2 L MCV 82 MCH 26.9 L MCHC 32.8 RDW 13.6 Plt Count 204 Assessment and Plan(PN) - Assessment and Plan (1) S/P primary low transverse Is this a current diagnosis for this admission?: Yes Plan: routine pp care - Time Spent with Patient Time with patient: Less than 15 minutes Medications reviewed and adjusted accordingly: Yes - Disposition Anticipated Discharge: Home Within: within 24 hours
[2019-07-05] MEDS: SIMETHICONE 80 MG TAB.CHEW PO PRN ×2 (05:55→18:38)
[2019-07-05] MEDS: IBUPROFEN 800 MG TABLET PO SCH ×3 (05:55→18:38)
[2019-07-05] MEDS: KETOROLAC TROMETHAMINE INJ/PF 30 MG/1 ML SDV IV SCH ×2 (06:01→14:06)
[2019-07-05] MEDS: DOCUSATE SODIUM 100 MG CAPSULE PO SCH ×2 (10:37→18:38)
[2019-07-05] MEDS: PRENATAL VITAMIN W DHA CAPSULE PO SCH (10:37)
--- NOTE | 2019-07-05 11:40 | PDOC PROGRESS REPORT ---
Subjective-OB Progress Note for:: 07/05/19 Subjective: Feeling of heaviness & SOB on standing or sitting. Not w walking. Physical Exam (OB) Vital Signs: Temp Pulse Resp BP Pulse Ox 97.7 F 106 H 18 131/69 H 100 07/05/19 11:10 07/05/19 11:10 07/05/19 11:10 07/05/19 11:10 07/05/19 11:10 Intake & Output 07/04/19 07/05/19 07/06/19 06:59 06:59 06:59 Intake Total 840 Output Total 900 800 Balance -60 -800 - PIH/Pre-Eclampsia Clonus: Negative Headache: Absent Epigastric Pain: No Visual Changes: No - Dressing Removed: Yes Incision: Dressing Closure Type: opsite - Lochia Lochia Amount: Scant < 10 ml Lochia Color: Rubra/Red - Abdomen Description: Tender Hernia Present: No Bowel Sounds: Normoactive Flatus Presence: Present Stool: No Fundal Description: Firm, Midline Fundal Height: u/u - u/2 Objective-Diagnostic Laboratory: 07/04/19 07:23 Assessment and Plan(PN) - Time Spent with Patient Medications reviewed and adjusted accordingly: Yes - Disposition Anticipated Discharge: Home
[2019-07-05 13:06] LABS: ABSOLUTE BASOPHILS # (AUTO) 0.1 10^3/uL (0.0-0.2); ABSOLUTE EOSINOPHILS # (AUTO) 0.3 10^3/uL (0.0-0.6); ABSOLUTE LYMPHOCYTES (AUTO) 1.6 10^3/uL (0.5-4.7); ABSOLUTE NEUT (AUTO) 8.2 10^3/uL (1.7-8.2); BASOPHILS % (AUTO) 0.5 % (0-2); EOSINOPHILS % (AUTO) 2.5 % (0-6); HEMATOCRIT 31.2 % (36.0-47.0); HEMOGLOBIN 10.3 g/dL (12.0-15.5); MEAN CORPUSCULAR HEMOGLOBIN 27.4 pg (27.0-33.4); MEAN CORPUSCULAR HGB CONC 33.2 g/dL (32.0-36.0); MEAN CORPUSCULAR VOLUME 83 fl (80-97); MONOCYTES % (AUTO) 8.6 % (3-13); PLATELET COUNT 219 10^3/uL (150-450); RED BLOOD COUNT 3.78 10^6/uL (3.72-5.28); SEGMENTED NEUTROPHILS % (AUTO) 74.4 % (42-78); TOTAL CELLS COUNTED % (AUTO) 100 %; WHITE BLOOD COUNT 11.1 10^3/uL (4.0-10.5)
[2019-07-05 13:25] LABS: ALBUMIN 2.7 g/dL (3.5-5.0); ALKALINE PHOSPHATASE 101 U/L (38-126); ASPARTATE AMINO TRANSFERASE 29 U/L (14-36); BILIRUBIN,DIRECT 0.1 mg/dL (0.0-0.4); BILIRUBIN,TOTAL 0.1 mg/dL (0.2-1.3); BLOOD UREA NITROGEN 8 mg/dL (7-20); CARBON DIOXIDE 26 mmol/L (22-30); CHLORIDE 107 mmol/L (98-107); GLUCOSE 77 mg/dL (75-110); TOTAL PROTEIN 5.2 g/dL (6.3-8.2)
[2019-07-05 13:35] LABS: ANION GAP 5 (5-19)
--- NOTE | 2019-07-05 13:36 | RADIOLOGY REPORT (SQ) ---
EXAM DESCRIPTION: CHEST 2 VIEWS COMPLETED DATE/TIME: 07/05/2019 1:12 pm REASON FOR STUDY: chest heaviness upon standing COMPARISON: None. EXAM PARAMETERS: NUMBER OF VIEWS: two views TECHNIQUE: Digital Frontal and Lateral radiographic views of the chest acquired. RADIATION DOSE: NA LIMITATIONS: none FINDINGS: LUNGS AND PLEURA: A curvilinear radiolucent density directly beneath the mid right hemidi aphragm, may be on the basis of artifact versus possible free air. No evidence of acute pulmonary co nsolidation. No mo thorax or pleural effusion. MEDIASTINUM AND HILAR STRUCTURES: No masses or contour abnormalities. HEART AND VASCULAR STRUCTURES: Heart normal size. No evidence for failure. BONES: No acute findings. HARDWARE: None in the chest. OTHER: No other significant finding. IMPRESSION: 1. No acute pulmonary consolidation. 2. Question of a radiolucent curvilinear density directly beneath the mid right hemidiaphragm, may b e on the basis of artifact versus possible free air. A repeat PA film of the chest suggested. TECHNICAL DOCUMENTATION: JOB ID: [id number] [employer]- All Rights Reserved Reading location - IP/workstation name: [email or web address]
[2019-07-05 13:37] LABS: NT PRO BNP 162 pg/mL (<125)
[2019-07-05 13:38] LABS: TROPONIN I < 0.012 ng/mL
[2019-07-05] MEDS: OXYCODONE-ACETAMINOPHEN 5-325 MG TABLET PO PRN (13:44)
--- NOTE | 2019-07-05 15:49 | RADIOLOGY REPORT (SQ) ---
EXAM DESCRIPTION: ABDOMEN 2 VIEWS COMPLETED DATE/TIME: 07/05/2019 3:25 pm REASON FOR STUDY: ABD pain, distention (s/p ) COMPARISON: Two-view chest 07/05/2019 NUMBER OF VIEWS: Two views. TECHNIQUE: Supine and upright radiographic images of the abdomen acquired. LIMITATIONS: None. FINDINGS: FREE AIR: Patient has trace right subdiaphragmatic free air. Patient had a secti on 48 hours ago, this is appropriate post procedure. Findings discussed with Rhonda Eduardo. LUNG BASES: Clear. BOWEL GAS PATTERN: Nonobstructive pattern. No dilated loops or air fluid levels. CALCIFICATIONS: No suspicious calcifications. SOFT TISSUES: No gross mass or suggestion of organomegaly. HARDWARE: None in the abdomen. BONES: No acute fracture. No worrisome bone lesions. OTHER: No other significant finding. IMPRESSION: Trace right subdiaphragmatic free air post section. TECHNICAL DOCUMENTATION: JOB ID: [id number] [employer]- All Rights Reserved Reading location - IP/workstation name: [email or web address]
[2019-07-05] MEDS ORDERED: NORMAL SALINE 1000 ML 1,000 ML IV ONE (17:26)
[2019-07-05] MEDS ORDERED: NORMAL SALINE 1000 ML 1,000 ML IV PRN (17:28)
[2019-07-05] MEDS ORDERED: BISACODYL 10 MG SUPP.RECT PR ONE ×2 (18:00→22:00)
--- NOTE | 2019-07-05 18:54 | PDOC CONSULTATION ---
Consultation Consult Date: 07/05/19 Attending physician:: CASTRO LLANOS Provider Consulted: DEAN ROACH Consult reason:: Atypical chest pain, dyspnea History of Present Illness Admission Date/PCP: 07/02/19 21:05 CASTRO LLANOS MD Patient complains of: chest pain and shortness of breath with activity History of Present Illness: KRAIG GONZALEZ is a 29 year old female with a past medical history significant for gestational diabetes and obesity who delivered a full-term via C- section 48 hours previously. The patient reports chest discomfort, described as pressure or crushing, that is mid chest, nonradiating, prompted by activity/position change, resolving after 2 to 3 minutes of rest, and associated with lightheadedness and shortness of breath. The patient denies any prior similar symptoms. Evaluation by her attending providers revealed anemia (Hgb/Hct 10.3/31.2) but otherwise normal CBC, unremarkable chemistry, nml Troponin, proBNP 162, EKG shows NSR w/ PVCs, and benign CXR. Follow up two view abdomen does reveal small amount of free air in the abdomen; but appropriate given recent . Past Medical History Cardiac Medical History: Reports: None Pulmonary Medical History: Reports: None EENT Medical History: Reports: None Neurological Medical History: Reports: None Endocrine Medical History: Reports: Gestational Diabetes, Obesity Renal/ Medical History: Reports: None Malignancy Medical History: Reports: None GI Medical History: Reports: None Musculoskeltal Medical History: Reports: None Skin Medical History: Reports: None Psychiatric Medical History: Reports: None Traumatic Medical History: Reports: None Hematology: Reports: None Infectious Medical History: Reports: None Past Surgical History Past Surgical History: Reports: Section Social History Information Source: Patient Lives with: Family Smoking Status: Never Smoker Frequency of Alcohol Use: None Hx Recreational Drug Use: No Hx Prescription Drug Abuse: No - Advance Directive Resuscitation Status: Full Code Family History Family History: CAD, CVA, Hyperlipidemia, Hypertension Parental Family History Reviewed: Yes Children Family History Reviewed: NA Sibling(s) Family History Reviewed.: Yes Medication/Allergy Home Medications: No122/Iron/Folic Acid [ Multi Tablet] 1 tab PO DAILY 05/25/19 Glyburide [Diabeta 5 mg Tablet] 2 tab PO DAILYP PRN 07/02/19 Allergies/Adverse Reactions: No Known Allergies Allergy (Verified 07/02/19 22:11) Review of Systems Constitutional: ABSENT: chills, fever(s), headache(s), weight gain, weight loss Eyes: ABSENT: visual disturbances Ears: ABSENT: hearing changes Cardiovascular: PRESENT: chest pain, dyspnea on exertion, palpitations. ABSENT: edema, orthropnea Respiratory: PRESENT: dyspnea. ABSENT: cough, hemoptysis Gastrointestinal: PRESENT: abdominal pain, bloating, constipation. ABSENT: diarrhea, hematemesis, hematochezia, nausea, vomiting Genitourinary: ABSENT: dysuria, hematuria Musculoskeletal: ABSENT: joint swelling Integumentary: ABSENT: rash, wounds Neurological: ABSENT: abnormal gait, abnormal speech, confusion, dizziness, focal weakness, syncope Psychiatric: ABSENT: anxiety, depression, homidical ideation, suicidal ideation Endocrine: ABSENT: cold intolerance, heat intolerance, polydipsia, polyuria Hematologic/Lymphatic: ABSENT: easy bleeding, easy bruising Physical Exam Vital Signs: Temp Pulse Resp BP Pulse Ox 97.7 F 113 H 20 138/85 H 99 07/05/19 15:10 07/05/19 15:10 07/05/19 15:10 07/05/19 15:10 07/05/19 15:10 Intake & Output 07/04/19 07/05/19 07/06/19 06:59 06:59 06:59 Intake Total 840 Output Total 900 800 Balance -60 -800 General appearance: PRESENT: no acute distress, cooperative, obese, well- developed, well-nourished Head exam: PRESENT: atraumatic, normocephalic Eye exam: PRESENT: conjunctiva pink, EOMI, PERRLA. ABSENT: scleral icterus Ear exam: PRESENT: normal external ear exam Mouth exam: PRESENT: moist, tongue midline Neck exam: ABSENT: carotid bruit, JVD, lymphadenopathy, thyromegaly Respiratory exam: PRESENT: clear to auscultation lisa, symmetrical, unlabored. ABSENT: rales, rhonchi, wheezes Cardiovascular exam: PRESENT: RRR, +S1, +S2. ABSENT: diastolic murmur, rubs, systolic murmur Pulses: PRESENT: normal dorsalis pedis pul Vascular exam: PRESENT: normal capillary refill GI/Abdominal exam: PRESENT: distended, normal bowel sounds, soft, tenderness. ABSENT: guarding, mass, organolmegaly, rebound Rectal exam: PRESENT: deferred Extremities exam: PRESENT: full ROM. ABSENT: calf tenderness, clubbing, pedal edema Musculoskeletal exam: PRESENT: ambulatory Neurological exam: PRESENT: alert, awake, oriented to person, oriented to place, oriented to time, oriented to situation, CN II-XII grossly intact. ABSENT: motor sensory deficit Psychiatric exam: PRESENT: appropriate affect, normal mood. ABSENT: homicidal ideation, suicidal ideation Skin exam: PRESENT: dry, intact, warm. ABSENT: cyanosis, rash Results Laboratory Results: 07/05/19 12:52 07/05/19 12:52 07/05/19 07/05/19 12:52 12:52 WBC 11.1 H RBC 3.78 Hgb 10.3 L Hct 31.2 L MCV 83 MCH 27.4 MCHC 33.2 RDW 14.0 Plt Count 219 Seg Neutrophils % 74.4 Sodium 137.2 Potassium 4.0 Chloride 107 Carbon Dioxide 26 Anion Gap 5 BUN 8 Creatinine 0.63 Est GFR ( Amer) > 60 Glucose 77 Calcium 9.0 Total Bilirubin 0.1 L AST 29 Alkaline Phosphatase 101 Total Protein 5.2 L Albumin 2.7 L 07/05/19 12:52 Troponin I < 0.012 NT-Pro-B Natriuret Pep 162 H Impressions: Abdomen X-Ray 07/05/19 00:00 IMPRESSION: Trace right subdiaphragmatic free air post section. Chest X-Ray 07/05/19 12:28 IMPRESSION: 1. No acute pulmonary consolidation. 2. Question of a radiolucent curvilinear density directly beneath the mid right hemidiaphragm, may be on the basis of artifact versus possible free air. A repeat PA film of the chest suggested. Assessment and Plan - Diagnosis (1) Atypical chest pain Is this a current diagnosis for this admission?: Yes Plan: Patient described atypical chest pain; crushing, non radiating, associated w/ dyspnea, prompted by activity that rapidly resolves. Risk factors include recent deliver, gestational DM, and obesity. Patient also has family history (maternal uncle/grandfather w/ heart disease and, she believes, early deaths). However, I do not believe the patient has ACS. CXR negative for PNA, effusions, edema EKG shows NSR proBNP and troponin are acceptable. Hgb down 1 gm post delivery patient does have Orthostatic hypotention Echcoardiogram to r/o related cardiomyopathy; though low suspicion as the patient does not have cardiomegally on CXR or abn heart sounds Will avoid ASA given recent 1L NS bolus followed by maintenance fluids. Orthostatic blood pressures each shift. (2) Dyspnea on exertion Is this a current diagnosis for this admission?: Yes Plan: Evaluation and management as above. Continue continuous pulse oximetry. Supplemental oxygen as needed to meet sats greater than 90%. Incentive spirometer to bedside. (3) Abdominal pain Qualifiers: Abdominal location: generalized Qualified Code(s): R10.84 - Generalized abdominal pain Is this a current diagnosis for this admission?: Yes Plan: Multifactorial secondary to recently been followed by section, free air, and constipation. Chest x-ray and two-view abdomen does reveal a small amount of free air, though appropriate given her recent . She is also noted to have moderate stool load. Pain management per primary team. Treatment/prevention of constipation as below. (4) Constipation Qualifiers: Constipation type: other constipation type Qualified Code(s): K59.09 - Other constipation Is this a current diagnosis for this admission?: Yes Plan: Multifactorial secondary to recent gestation, , decreased mobility, and opiate medications. Continue Colace twice daily. Dulcolax suppository x1 (5) Anemia Qualifiers: Anemia type: unspecified type Qualified Code(s): D64.9 - Anemia, unspecified Is this a current diagnosis for this admission?: Yes Plan: Related to and recent Received Venofer x2 per primary team. Hgb 11.5-> 10.3 Continues to have appropriate amount, per nursing, of vaginal bleeding. Routine monitoring per OBGYN team. Follow up CBC in am. No indications for transfusion at this time. Continue vitamins. (6) Obesity (BMI 30-39.9) Is this a current diagnosis for this admission?: Yes Plan: Primarily related to recent gestation. BMI 39.6 post delivery. Lifestyle modification recommended. - Time Time Spent with patient: 35 or more minutes Medications reviewed and adjusted accordingly: Yes Anticipated discharge: Home
[2019-07-05] MEDS ORDERED: NORMAL SALINE 500 ML IV ONE (23:00)
[2019-07-06] MEDS: IBUPROFEN 800 MG TABLET PO SCH ×4 (00:37→17:16)
[2019-07-06] MEDS: OXYCODONE-ACETAMINOPHEN 5-325 MG TABLET PO PRN ×4 (03:00→19:06)
[2019-07-06 05:49] LABS: HEMATOCRIT 30.8 % (36.0-47.0); HEMOGLOBIN 10.4 g/dL (12.0-15.5); MEAN CORPUSCULAR HEMOGLOBIN 27.7 pg (27.0-33.4); MEAN CORPUSCULAR HGB CONC 33.7 g/dL (32.0-36.0); MEAN CORPUSCULAR VOLUME 82 fl (80-97); PLATELET COUNT 216 10^3/uL (150-450); RED BLOOD COUNT 3.74 10^6/uL (3.72-5.28); RED CELL DISTRIBUTION WIDTH 13.9 % (11.5-14.0); WHITE BLOOD COUNT 8.9 10^3/uL (4.0-10.5)
[2019-07-06] MEDS: KETOROLAC TROMETHAMINE INJ/PF 30 MG/1 ML SDV IV SCH (06:20)
[2019-07-06] MEDS: SIMETHICONE 80 MG TAB.CHEW PO PRN ×2 (07:44→12:33)
[2019-07-06] MEDS: DOCUSATE SODIUM 100 MG CAPSULE PO SCH ×2 (09:35→17:17)
[2019-07-06] MEDS: PRENATAL VITAMIN W DHA CAPSULE PO SCH (09:35)
--- NOTE | 2019-07-06 10:30 | PDOC PROGRESS REPORT ---
Subjective-OB Progress Note for:: 07/06/19 Subjective: OOB to nursery,, , doing well, no c/o Physical Exam (OB) Vital Signs: Temp Pulse Resp BP Pulse Ox 98.0 F 98 16 136/80 H 99 07/06/19 07:21 07/06/19 07:21 07/06/19 07:21 07/06/19 07:21 07/06/19 07:21 Intake & Output 07/05/19 07/06/19 07/07/19 06:59 06:59 06:59 Intake Total 800 Output Total 800 Balance -800 800 - PIH/Pre-Eclampsia Clonus: Negative Headache: Absent Epigastric Pain: No Visual Changes: No - Dressing Removed: No - opsite Incision: Dressing Closure Type: opsite - Bilateral Tubal Ligation Dressing Removed: No - Lochia Lochia Amount: Scant < 10 ml Lochia Color: Rubra/Red - Abdomen Description: Tender, Soft, Round Hernia Present: No Fundal Description: Firm, Midline Fundal Height: u/u - u/2 Objective-Diagnostic Laboratory: 07/06/19 05:37 07/05/19 12:52 07/05/19 07/05/19 07/06/19 12:52 12:52 05:37 WBC 11.1 H 8.9 RBC 3.78 3.74 Hgb 10.3 L 10.4 L Hct 31.2 L 30.8 L MCV 83 82 MCH 27.4 27.7 MCHC 33.2 33.7 RDW 14.0 13.9 Plt Count 219 216 Seg Neutrophils % 74.4 Sodium 137.2 Potassium 4.0 Chloride 107 Carbon Dioxide 26 Anion Gap 5 BUN 8 Creatinine 0.63 Est GFR ( Amer) > 60 Glucose 77 Calcium 9.0 Total Bilirubin 0.1 L AST 29 Alkaline Phosphatase 101 Total Protein 5.2 L Albumin 2.7 L 07/05/19 07/06/19 12:52 05:37 Troponin I < 0.012 < 0.012 NT-Pro-B Natriuret Pep 162 H Assessment and Plan(PN) - Assessment and Plan (1) S/P primary low transverse Is this a current diagnosis for this admission?: Yes (2) Atypical chest pain Is this a current diagnosis for this admission?: Yes (3) Dyspnea on exertion Is this a current diagnosis for this admission?: Yes (4) Anemia Qualifiers: Other causes of anemia: acute posthemorrhagic Is this a current diagnosis for this admission?: Yes (5) Obesity (BMI 30-39.9) Is this a current diagnosis for this admission?: Yes (6) macrosomia affecting management of mother, antepartum Is this a current diagnosis for this admission?: Yes - Time Spent with Patient Time with patient: Less than 15 minutes Medications reviewed and adjusted accordingly: Yes - Disposition Anticipated Discharge: Home Within: within 24 hours
--- NOTE | 2019-07-06 16:06 | PDOC PROGRESS REPORT ---
Subjective Progress Note for:: 07/06/19 Subjective:: KRAIG GONZALEZ is a 29 year old female with a past medical history significant for gestational diabetes and obesity who delivered a full-term infant via C- section 72 hours previously subsequently developed atypical chest pain and dyspnea. Hospital service was consulted for further evaluation. Next Patient was seen on morning rounds with significant other and family members present. She reports that she is feeling much better today. She does continue to have slight palpitations and dyspnea immediately upon standing, however, the symptoms improve within 30 to 45 seconds and are not as severe as yesterday's. She reports that her symptoms are significantly improved today. She denies headache, dizziness, fever, chills, orthopnea, cough, abdominal pain, nausea vomiting diarrhea and constipation. She did have a bowel movement last night. She has no questions or concerns today. Reason For Visit: Physical Exam Vital Signs: Temp Pulse Resp BP Pulse Ox 97.7 F 103 H 14 135/73 H 99 07/06/19 15:34 07/06/19 15:34 07/06/19 15:34 07/06/19 15:34 07/06/19 15:34 Intake & Output 07/05/19 07/06/19 07/07/19 06:59 06:59 06:59 Intake Total 800 Output Total 800 Balance -800 800 General appearance: PRESENT: no acute distress, cooperative, obese, well- developed, well-nourished Head exam: PRESENT: atraumatic, normocephalic Eye exam: PRESENT: conjunctiva pink, EOMI, PERRLA. ABSENT: scleral icterus Ear exam: PRESENT: normal external ear exam Mouth exam: PRESENT: moist, tongue midline Neck exam: ABSENT: carotid bruit, JVD, lymphadenopathy, thyromegaly Respiratory exam: PRESENT: clear to auscultation lisa, symmetrical, unlabored. ABSENT: rales, rhonchi, wheezes Cardiovascular exam: PRESENT: RRR, +S1, +S2. ABSENT: diastolic murmur, rubs, systolic murmur Pulses: PRESENT: normal dorsalis pedis pul Vascular exam: PRESENT: normal capillary refill GI/Abdominal exam: PRESENT: normal bowel sounds, soft. ABSENT: distended, guarding, mass, organolmegaly, rebound, tenderness Rectal exam: PRESENT: deferred Extremities exam: PRESENT: full ROM. ABSENT: calf tenderness, clubbing, pedal edema Musculoskeletal exam: PRESENT: ambulatory Neurological exam: PRESENT: alert, awake, oriented to person, oriented to place, oriented to time, oriented to situation, CN II-XII grossly intact. ABSENT: motor sensory deficit Psychiatric exam: PRESENT: appropriate affect, normal mood. ABSENT: homicidal ideation, suicidal ideation Skin exam: PRESENT: dry, intact, warm. ABSENT: cyanosis, rash Results Laboratory Results: 07/06/19 05:37 07/05/19 12:52 07/06/19 05:37 WBC 8.9 RBC 3.74 Hgb 10.4 L Hct 30.8 L MCV 82 MCH 27.7 MCHC 33.7 RDW 13.9 Plt Count 216 07/05/19 07/06/19 12:52 05:37 Troponin I < 0.012 < 0.012 NT-Pro-B Natriuret Pep 162 H Impressions: Abdomen X-Ray 07/05/19 00:00 IMPRESSION: Trace right subdiaphragmatic free air post section. Chest X-Ray 07/05/19 12:28 IMPRESSION: 1. No acute pulmonary consolidation. 2. Question of a radiolucent curvilinear density directly beneath the mid right hemidiaphragm, may be on the basis of artifact versus possible free air. A repeat PA film of the chest suggested. Assessment and Plan - Diagnosis (1) Orthostatic hypotension Is this a current diagnosis for this admission?: Yes Plan: Multifactorial; physiologic secondary to . As well as intraoperative blood loss. Patient received 500 mL's IV fluids overnight. Encourage p.o. fluids. Liberalize salt intake. Recommended slow position changes. Long discussion had with patient and family members regarding orthostatic hypotension and management. Would recommend dose reduction of patient's narcotic pain medications. (2) Atypical chest pain Is this a current diagnosis for this admission?: Yes Plan: Significantly improved; secondary to palpitations/tachycardia related to orthostatic hypotension. CXR negative for PNA, effusions, edema EKG shows NSR proBNP and troponin are acceptable. Hgb down 1 gm post delivery; stable at 10.4 Patient did have Orthostatic hypotention Echcoardiogram to r/o related cardiomyopathy; though low suspicion as the patient does not have cardiomegally on CXR or abn heart sounds. Echocardiogram has been obtained; formal report pending. Encourage p.o. fluids. Recommended slow position changes. Long discussion had with patient and family members regarding orthostatic hypotension and management. May liberalize salt intake. (3) Abdominal pain Qualifiers: Abdominal location: generalized Qualified Code(s): R10.84 - Generalized abdominal pain Is this a current diagnosis for this admission?: Yes Plan: Improved. Multifactorial secondary to recently been followed by section, free air, and constipation. Chest x-ray and two-view abdomen does reveal a small amount of free air, though appropriate given her recent . She is also noted to have moderate stool load. Pain management per primary team. Treatment/prevention of constipation as below. (4) Dyspnea on exertion Is this a current diagnosis for this admission?: Yes Plan: Evaluation and management as above. Continue continuous pulse oximetry. Supplemental oxygen as needed to meet sats greater than 90%. Incentive spirometer to bedside. (5) Constipation Qualifiers: Constipation type: other constipation type Qualified Code(s): K59.09 - Other constipation Is this a current diagnosis for this admission?: Yes Plan: Resolved. Multifactorial secondary to recent gestation, , decreased mobility, and opiate medications. Continue Colace twice daily. (6) Anemia Qualifiers: Other causes of anemia: acute posthemorrhagic Is this a current diagnosis for this admission?: Yes Plan: Related to and recent Received Venofer x2 per primary team. Hgb 11.5-> 10.3-> 10.4 Continues to have appropriate amount, per nursing, of vaginal bleeding. Routine monitoring per OBGYN team. Follow up CBC in am. No indications for transfusion at this time. Continue vitamins. (7) Obesity (BMI 30-39.9) Is this a current diagnosis for this admission?: Yes Plan: Primarily related to recent gestation. BMI 39.6 post delivery. Lifestyle modification recommended. - Time Time Spent with patient: 15-24 minutes Medications reviewed and adjusted accordingly: Yes Anticipated discharge: Home Within: Other - Per primary team - Plan Summary Plan Summary: The patient's symptoms are significantly resolved today. Orthostatic hypotension much improved. Evaluation for chest pain essentially unremarkable. Echocardiogram is pending; we will follow-up on final report. Patient is medically cleared for discharge from the perspective of the hospitalist/internal medicine service. Will sign off; please reconsult if we can be of any further assistance.
[2019-07-07] MEDS: IBUPROFEN 800 MG TABLET PO SCH ×3 (00:14→12:57)
[2019-07-07] MEDS: KETOROLAC TROMETHAMINE INJ/PF 30 MG/1 ML SDV IV SCH ×4 (00:21→14:13)
--- NOTE | 2019-07-07 09:06 | EKG REPORT ---
SEVERITY:- OTHERWISE NORMAL ECG - SINUS RHYTHM ARTFACTS NOTED : Confirmed by: Bisi Cote 07-Jul-2019 09:05:19
[2019-07-07] MEDS: PRENATAL VITAMIN W DHA CAPSULE PO SCH (10:04)
[2019-07-07] MEDS: DOCUSATE SODIUM 100 MG CAPSULE PO SCH (10:04)
--- NOTE | 2019-07-07 10:07 | PDOC PROGRESS REPORT ---
Subjective-OB Progress Note for:: 07/07/19 Subjective: Doing well, holding baby, hsb at BS asking questions about discharge and plan for his and baby, passing gas, + BM, Physical Exam (OB) Vital Signs: Temp Pulse Resp BP Pulse Ox 98.1 F 106 H 18 138/84 H 100 07/07/19 07:00 07/07/19 07:00 07/07/19 07:00 07/07/19 07:00 07/07/19 07:00 Intake & Output 07/06/19 07/07/19 07/08/19 06:59 06:59 06:59 Intake Total 800 1000 Balance 800 1000 - PIH/Pre-Eclampsia Clonus: Negative Headache: Absent Epigastric Pain: No Visual Changes: No - Dressing Removed: No - opsite, dry drain, scant Incision: Dressing Closure Type: opsite - Bilateral Tubal Ligation Dressing Removed: No - Lochia Lochia Amount: Small 10-25 ml Lochia Color: Rubra/Red - Abdomen Description: Tender, Soft, Round Hernia Present: No Fundal Description: Firm, Midline Fundal Height: u/u - u/2 Objective-Diagnostic Laboratory: 07/06/19 05:37 07/05/19 12:52 07/05/19 07/06/19 12:52 05:37 Troponin I < 0.012 < 0.012 NT-Pro-B Natriuret Pep 162 H Assessment and Plan(PN) - Assessment and Plan (1) S/P primary low transverse Is this a current diagnosis for this admission?: Yes (2) Atypical chest pain Is this a current diagnosis for this admission?: Yes (3) Dyspnea on exertion Is this a current diagnosis for this admission?: Yes (4) Anemia Qualifiers: Other causes of anemia: acute posthemorrhagic Is this a current diagnosis for this admission?: Yes (5) Obesity (BMI 30-39.9) Is this a current diagnosis for this admission?: Yes (6) macrosomia affecting management of mother, antepartum Is this a current diagnosis for this admission?: Yes - Time Spent with Patient Time with patient: Less than 15 minutes Medications reviewed and adjusted accordingly: Yes - Disposition Anticipated Discharge: Home Within: within 24 hours
--- NOTE | 2019-07-07 10:15 | PDOC DISCHARGE SUMMARY ---
Impression - Admit/DC Date/PCP Admission Date/Primary Care Provider: 07/02/19 21:05 CASTRO LLANOS MD Discharge Date: 07/07/19 - Discharge Diagnosis (1) S/P primary low transverse Is this a current diagnosis for this admission?: Yes (2) Atypical chest pain Is this a current diagnosis for this admission?: Yes (3) Dyspnea on exertion Is this a current diagnosis for this admission?: Yes (4) Anemia Is this a current diagnosis for this admission?: Yes (5) Obesity (BMI 30-39.9) Is this a current diagnosis for this admission?: Yes (6) macrosomia affecting management of mother, antepartum Is this a current diagnosis for this admission?: Yes - Additional Information Resuscitation Status: Full Code Discharge Diet: As Tolerated, Regular Discharge Activity: Activity As Tolerated, No Driving, No Lifting Over 10 Pounds, No Lifting/Push/Pulling, Pelvic Rest Referrals: CASTRO LLANOS MD [Primary Care Provider] - 07/11/19 2:30 pm (PLEASE CALL THE OFFICE FOR ANY QUESTIONS OR CONCERN. RTC 1 week) Prescriptions: Oxycodone HCl/Acetaminophen [Percocet 5-325 mg Tablet] 1 tab PO Q4HP PRN #20 tablet PRN Reason: Ibuprofen [Motrin 800 mg Tablet] 800 mg PO Q6 #60 tablet Home Medications: No122/Iron/Folic Acid [ Multi Tablet] 1 tab PO DAILY 05/25/19 Ibuprofen [Motrin 800 mg Tablet] 800 mg PO Q6 #60 tablet 07/07/19 Oxycodone HCl/Acetaminophen [Percocet 5-325 mg Tablet] 1 tab PO Q4HP PRN #20 tablet 07/07/19 HPI Gestational Age: 39.4 Reason(s) for Admission: Ceasarean Section-Primary, Group B Strep Positive Admission Note: Macrosomia Procedures: NST, Ultrasound Intrapartum Procedure(s): : Low Cervical, Transverse Hospital Course Hospital Course: had some atypical chest pain and SOB, seen by hospitalist and labs, echo, ekg, chest xray, abdominal sono Results Laboratory Results: WBC 8.9 10^3/uL (4.0-10.5) 07/06/19 05:37 RBC 3.74 10^6/uL (3.72-5.28) 07/06/19 05:37 Hgb 10.4 g/dL (12.0-15.5) L 07/06/19 05:37 Hct 30.8 % (36.0-47.0) L 07/06/19 05:37 MCV 82 fl (80-97) 07/06/19 05:37 MCH 27.7 pg (27.0-33.4) 07/06/19 05:37 MCHC 33.7 g/dL (32.0-36.0) 07/06/19 05:37 RDW 13.9 % (11.5-14.0) 07/06/19 05:37 Plt Count 216 10^3/uL (150-450) 07/06/19 05:37 Lymph % (Auto) 14.0 % (13-45) 07/05/19 12:52 Surry % (Auto) 8.6 % (3-13) 07/05/19 12:52 Eos % (Auto) 2.5 % (0-6) 07/05/19 12:52 Baso % (Auto) 0.5 % (0-2) 07/05/19 12:52 Absolute Neuts (auto) 8.2 10^3/uL (1.7-8.2) 07/05/19 12:52 Absolute Lymphs (auto) 1.6 10^3/uL (0.5-4.7) 07/05/19 12:52 Absolute Monos (auto) 1.0 10^3/uL (0.1-1.4) 07/05/19 12:52 Absolute Eos (auto) 0.3 10^3/uL (0.0-0.6) 07/05/19 12:52 Absolute Basos (auto) 0.1 10^3/uL (0.0-0.2) 07/05/19 12:52 Seg Neutrophils % 74.4 % (42-78) 07/05/19 12:52 Sodium 137.2 mmol/L (137-145) 07/05/19 12:52 Potassium 4.0 mmol/L (3.6-5.0) 07/05/19 12:52 Chloride 107 mmol/L (98-107) 07/05/19 12:52 Carbon Dioxide 26 mmol/L (22-30) 07/05/19 12:52 Anion Gap 5 (5-19) 07/05/19 12:52 BUN 8 mg/dL (7-20) 07/05/19 12:52 Creatinine 0.63 mg/dL (0.52-1.25) 07/05/19 12:52 Est GFR ( Amer) > 60 (>60) 07/05/19 12:52 Est GFR (MDRD) Non-Af > 60 (>60) 07/05/19 12:52 Glucose 77 mg/dL (75-110) 07/05/19 12:52 Calcium 9.0 mg/dL (8.4-10.2) 07/05/19 12:52 Total Bilirubin 0.1 mg/dL (0.2-1.3) L 07/05/19 12:52 Direct Bilirubin 0.1 mg/dL (0.0-0.4) 07/05/19 12:52 Neonat Total Bilirubin Not Reportable 07/05/19 12:52 Neonat Direct Bilirubin Not Reportable 07/05/19 12:52 Neonat Indirect Bili Not Reportable 07/05/19 12:52 AST 29 U/L (14-36) 07/05/19 12:52 ALT 18 U/L (<35) 07/05/19 12:52 Alkaline Phosphatase 101 U/L (38-126) 07/05/19 12:52 Troponin I < 0.012 ng/mL 07/06/19 05:37 NT-Pro-B Natriuret Pep 162 pg/mL (<125) H 07/05/19 12:52 Total Protein 5.2 g/dL (6.3-8.2) L 07/05/19 12:52 Albumin 2.7 g/dL (3.5-5.0) L 07/05/19 12:52 Urine Color YELLOW 07/02/19 21:15 Urine Appearance SLIGHTLY-CLOUDY 07/02/19 21:15 Urine pH 6.0 (5.0-9.0) 07/02/19 21:15 Ur Specific Vernal 1.024 07/02/19 21:15 Urine Protein NEGATIVE mg/dL (NEGATIVE) 07/02/19 21:15 Urine Glucose (UA) NEGATIVE mg/dL (NEGATIVE) 07/02/19 21:15 Urine Ketones NEGATIVE mg/dL (NEGATIVE) 07/02/19 21:15 Urine Blood NEGATIVE (NEGATIVE) 07/02/19 21:15 Urine Nitrite NEGATIVE (NEGATIVE) 07/02/19 21:15 Urine Bilirubin NEGATIVE (NEGATIVE) 07/02/19 21:15 Urine Urobilinogen NEGATIVE mg/dL (<2.0) 07/02/19 21:15 Ur Leukocyte Esterase NEGATIVE (NEGATIVE) 07/02/19 21:15 Urine Ascorbic Acid NEGATIVE (NEGATIVE) 07/02/19 21:15 Urine Opiates Screen NEGATIVE 07/02/19 21:15 Urine Methadone Screen NEGATIVE 07/02/19 21:15 Ur Barbiturates Screen NEGATIVE 07/02/19 21:15 Ur Phencyclidine Scrn NEGATIVE 07/02/19 21:15 Ur Amphetamines Screen NEGATIVE 07/02/19 21:15 U Benzodiazepines Scrn NEGATIVE 07/02/19 21:15 Urine Cocaine Screen NEGATIVE 07/02/19 21:15 U Marijuana (THC) Screen NEGATIVE 07/02/19 21:15 RPR NONREACTIVE (NONREACTIVE) 07/02/19 21:40 Blood Type A POSITIVE 07/02/19 21:40 Antibody Screen NEGATIVE 07/02/19 21:40 07/05/19 07/06/19 12:52 05:37 Troponin I < 0.012 < 0.012 NT-Pro-B Natriuret Pep 162 H Impressions: Abdomen X-Ray 07/05/19 00:00 IMPRESSION: Trace right subdiaphragmatic free air post section. Chest X-Ray 07/05/19 12:28 IMPRESSION: 1. No acute pulmonary consolidation. 2. Question of a radiolucent curvilinear density directly beneath the mid right hemidiaphragm, may be on the basis of artifact versus possible free air. A repeat PA film of the chest suggested. Plan Health Concerns: Reviewed S&S to report Plan of Treatment: pelvic rest, pain medication, discussed dc planning, baby home with mom
[2019-07-07 13:31] VITALS: BP 133/83
[2019-07-07] MEDS: OXYCODONE-ACETAMINOPHEN 5-325 MG TABLET PO PRN (14:14)
--- NOTE | 2019-07-08 15:57 | XCELERA REPORT ---
[address] [address] Transthoracic Echocardiogram Report Name: KRAIG GONZALEZ Age: 29 yrs Gender: Female : 1990 Patient Status: Inpatient Patient Location: [address] [place] [address] Study Date: 07/05/2019 05:25 PM Height: 74 in Weight: 308 lb BSA: 2.6 m2 Procedure: A two-dimensional transthoracic echocardiogram with color flow and Doppler was performed. The study was technically difficult with many images being suboptimal in quality. Reason For Study: near syncope, murmur History: Systolic Murmur. Ordering Physician: DEAN ROACH Performed By: Ila Isabel Interpretation Summary The left ventricle is normal in size. There is normal left ventricular wall thickness. No 'True 2 chamber ' views obtained.Hence cannot comment on the apical and basal inferior ,and the apical and basal anterior majano.The mid anterior ,the mid inferior , and the rest of the LV waaaalls contract normally.The LVEF in these limited views is normal at 60%. Doppler measurements suggest impaired left ventricular relaxation, which is associated with grade I/IV or mild diastolic dysfunction There is no thrombus. nnot assess ASD ,VSD,or PFO The right ventricle is not well visualized secondary to technical limitations Right atrium not well visualized secondary to technical limitations The left atrial size is normal. There is no evidence of mitral valve prolapse. There is no vegetation seen on the mitral valve. There is no mitral valve stenosis. There is a mild amount of mitral regurgitation There is no aortic valvular vegetation. There is no aortic valve stenosis There is no LVOT obstruction. No aortic regurgitation is present. There is no tricuspid stenosis. There is a mild to moderate amount of tricuspid regurgitation There is mild pulmonary hypertension by echo RVSP is 41 to 46 mm of Hg , with RA mean of 5 to 10. There is no pulmonic valvular stenosis. There is a trace amount of pulmonic regurgitation The aortic root is normal size. The inferior vena cava appeared normal and decreased > 50% with respiration (RAP 5-10 mmHg) Minimal pericardial effusion. (Trace posterior Pericardial effusion).No tamponade. MMode/2D Measurements & Calculations RVDd: 2.6 cm LVIDd: 5.5 cm FS: 30.4 % Ao root diam: 2.8 cm IVSd: 0.99 cm LVIDs: 3.9 cm EDV(Teich): 149.6 ml Ao root area: 6.0 cm2 LVPWd: 0.96 cm ESV(Teich): 64.0 ml LA dimension: 3.6 cm EF(Teich): 57.2 % Doppler Measurements & Calculations MV E max jimena: MV P1/2t max jimena: Ao V2 max: LV V1 max P.6 cm/sec 124.9 cm/sec 153.4 cm/sec 2.8 mmHg MV A max jimena: MV P1/2t: 46.4 msec Ao max P.4 mmHgLV V1 max: 75.8 cm/sec MVA(P1/2t): 4.7 cm2 84.1 cm/sec MV E/A: 0.93 MV dec slope: 788.1 cm/sec2 MV dec time: 0.18 sec PI end-d jimena: TR max jimena: MV P1/2t-pr_phl: 161.5 cm/sec 301.3 cm/sec 46.4 msec TR max P.3 mmHg Left Ventricle The left ventricle is normal in size. There is normal left ventricular wall thickness. No 'True 2 chamber ' views obtained.Hence cannot comment on the apical and basal inferior ,and the apical and basal anterior majano.The mid anterior ,the mid inferior , and the rest of the LV waaaalls contract normally.The LVEF in these limited views is normal at 60%. Doppler measurements suggest impaired left ventricular relaxation, which is associated with grade I/IV or mild diastolic dysfunction. There is no thrombus. nnot assess ASD ,VSD,or PFO. Right Ventricle The right ventricle is not well visualized secondary to technical limitations. Atria Right atrium not well visualized secondary to technical limitations. The left atrial size is normal. Mitral Valve There is no evidence of mitral valve prolapse. There is no vegetation seen on the mitral valve. There is no mitral valve stenosis. There is a mild amount of mitral regurgitation. Aortic Valve There is no aortic valvular vegetation. There is no aortic valve stenosis. There is no LVOT obstruction. No aortic regurgitation is present. Tricuspid Valve There is no tricuspid stenosis. There is a mild to moderate amount of tricuspid regurgitation. There is mild pulmonary hypertension by echo. RVSP is 41 to 46 mm of Hg , with RA mean of 5 to 10. Pulmonic Valve There is no pulmonic valvular stenosis. There is a trace amount of pulmonic regurgitation. Great Vessels The aortic root is normal size. The inferior vena cava appeared normal and decreased > 50% with respiration (RAP 5-10 mmHg). Effusions Minimal pericardial effusion. (Trace posterior Pericardial effusion).No tamponade. : DEAN ROACH Lakshmi
== END 2019-07-07 15:35 | disposition home or self-care (01) | DRG 788 ==
LOC: LR 21:05 → 2S 07-03 17:40
PROVIDERS: ADMIT Obstetrics & Gynecology; ATTEND Obstetrics & Gynecology
PROC: 10D00Z1 Extraction of Products of Conception, Low, Open Approach (ICD-10-PCS; principal; 2019-07-03)
DX: O36.63X0 Maternal care for excessive fetal growth, third trimester, not applicable or unspecified (principal); O24.425 Gestational diabetes mellitus in childbirth, controlled by oral hypoglycemic drugs; O76 Abnormality in fetal heart rate and rhythm complicating labor and delivery; O99.824 Streptococcus B carrier state complicating childbirth; O99.02 Anemia complicating childbirth; O99.214 Obesity complicating childbirth; E66.9 Obesity, unspecified; D64.9 Anemia, unspecified; O90.89 Other complications of the puerperium, not elsewhere classified; I95.1 Orthostatic hypotension; R07.89 Other chest pain; Z3A.39 39 weeks gestation of pregnancy; Z37.0 Single live birth
CPT/HCPCS: 1961; 36415; 71046; 74019; 80053; 80307; 81005; 83880; 84484; 85025; 85027; 86592; 86850; 86900; 86901; 93005; 93010; 93306; 94799; J0131; J0690; J1756; J1885; J2210; J2250; J2270; J2405; J2540; J2590; J3010; J3490; J7030; J7040; J7060

== ENCOUNTER 2019-11-03 20:51 | Emergency (ER) | payer OTHER ==
--- NOTE | 2019-11-03 22:22 | ER Document Report ---
ED Medical Screen (RME) - General Chief Complaint: Back Pain Stated Complaint: BACK PAIN,SHORTNESS OF BREATH Time Seen by Provider: 11/03/19 22:17 Primary Care Provider: CASTRO LLANOS MD [Primary Care Provider] - Follow up as needed Mode of Arrival: Ambulatory Information source: Patient Notes: 29-year-old female presents emergency department with complaints of chest pain shortness of breath back pain. Reports symptoms started Tuesday. She was evaluated for the flu which was negative. She denies fever vomiting diarrhea. Reports she took Tylenol early this morning did not help her symptoms. Denies recent trip. Reports she is 4 months . Denies history of PE DVT. Heart rate 89, 100% O2 sat. Respiratory rate even unlabored I have greeted and performed a rapid initial assessment of this patient. A comprehensive ED assessment and evaluation of the patient, analysis of test results and completion of the medical decision making process will be conducted by additional ED providers. TRAVEL OUTSIDE OF THE [place] IN LAST 30 DAYS: No - Related Data Allergies/Adverse Reactions: No Known Allergies Allergy (Verified 11/03/19 22:16) Past Medical History Renal/ Medical History: Denies: Hx Peritoneal Dialysis Past Surgical History: Reports: Hx Section - Immunizations Immunizations up to date: Yes Physical Exam - Vital signs Vitals: Temp Pulse Resp BP Pulse Ox 97.6 F 89 20 136/87 H 100 11/03/19 21:04 11/03/19 21:04 11/03/19 21:04 11/03/19 21:04 11/03/19 21:04 Course - Vital Signs Vital signs: Temp Pulse Resp BP Pulse Ox 97.6 F 89 20 136/87 H 100 11/03/19 21:04 11/03/19 21:04 11/03/19 21:04 11/03/19 21:04 11/03/19 21:04 Doctor's Discharge - Discharge Referrals: CASTRO LLANOS MD [Primary Care Provider] - Follow up as needed
--- NOTE | 2019-11-03 23:18 | RADIOLOGY REPORT (SQ) ---
EXAM DESCRIPTION: XR CHEST 2 VIEWS COMPLETED DATE/TME: 11/03/2019 22:20 CLINICAL HISTORY: 29 years, Female, cp COMPARISON: 07/05/2019 chest NUMBER OF VIEWS: 2 TECHNIQUE: 2 views of the chest LIMITATIONS: None. FINDINGS: Heart size normal. Lungs clear. No pneumothorax IMPRESSION: Negative chest copyright 2010 [email or web address]- All Rights Reserved
[2019-11-03 23:37] LABS: APPEARANCE,URINE SLIGHTLY-CLOUDY; BILIRUBIN,URINE NEGATIVE (NEGATIVE); COLOR,URINE YELLOW; GLUCOSE, URINE NEGATIVE (NEGATIVE); KETONES,URINE NEGATIVE (NEGATIVE); LEUKOCYTE ESTERASE,URINE NEGATIVE (NEGATIVE); NITRITE,URINE NEGATIVE (NEGATIVE); PROTEIN,URINE NEGATIVE (NEGATIVE); URINE SPECIFIC GRAVITY 1.016; UROBILINOGEN,URINE NEGATIVE mg/dL (<2.0)
[2019-11-03 23:38] LABS: ABSOLUTE EOSINOPHILS # (AUTO) 0.2 10^3/uL (0.0-0.6); ABSOLUTE LYMPHOCYTES (AUTO) 1.6 10^3/uL (0.5-4.7); ABSOLUTE MONOCYTES (AUTO) 0.6 10^3/uL (0.1-1.4); ABSOLUTE NEUT (AUTO) 3.4 10^3/uL (1.7-8.2); BASOPHILS % (AUTO) 0.3 % (0-2); EOSINOPHILS % (AUTO) 3.4 % (0-6); HEMOGLOBIN 14.8 g/dL (12.0-15.5); LYMPHOCYTES % (AUTO) 27.2 % (13-45); MEAN CORPUSCULAR HEMOGLOBIN 27.1 pg (27.0-33.4); MEAN CORPUSCULAR HGB CONC 33.7 g/dL (32.0-36.0); MEAN CORPUSCULAR VOLUME 81 fl (80-97); MONOCYTES % (AUTO) 10.1 % (3-13); PLATELET COUNT 237 10^3/uL (150-450); RED BLOOD COUNT 5.46 10^6/uL (3.72-5.28); RED CELL DISTRIBUTION WIDTH 13.9 % (11.5-14.0); TOTAL CELLS COUNTED % (AUTO) 100 %; WHITE BLOOD COUNT 5.8 10^3/uL (4.0-10.5)
[2019-11-03 23:53] LABS: A TYPE INFLUENZA AG NEGATIVE (NEGATIVE); B INFLUENZA AG NEGATIVE (NEGATIVE)
[2019-11-03 23:56] LABS: ALBUMIN 4.7 g/dL (3.5-5.0); ALKALINE PHOSPHATASE 71 U/L (38-126); ANION GAP 12 (5-19); ASPARTATE AMINO TRANSFERASE 28 U/L (14-36); BILIRUBIN,DIRECT 0.2 mg/dL (0.0-0.4); BILIRUBIN,TOTAL 0.7 mg/dL (0.2-1.3); BLOOD UREA NITROGEN 8 mg/dL (7-20); CARBON DIOXIDE 29 mmol/L (22-30); CHLORIDE 100 mmol/L (98-107); GLUCOSE 103 mg/dL (75-110); POTASSIUM 4.1 mmol/L (3.6-5.0); TOTAL PROTEIN 7.9 g/dL (6.3-8.2)
[2019-11-04] MEDS ORDERED: AMOXICILLIN TRIHYDRATE 500 MG CAPSULE PO ONE (02:11)
--- NOTE | 2019-11-04 02:15 | ER Document Report ---
ED Flu Like - General Chief Complaint: Flu Symptoms Stated Complaint: BACK PAIN,SHORTNESS OF BREATH Time Seen by Provider: 11/03/19 22:17 Primary Care Provider: CASTRO LLANOS MD [ACTIVE STAFF] - Follow up as needed Mode of Arrival: Ambulatory Notes: Patient is a 29-year-old female presents emergency department with a chief complaint of chest pain, shortness of breath, and back pain. Patient states that she had flulike symptoms earlier this week and was seen by urgent care 2 days ago. She was told she does not have the flu, but was not sent home with any occasions to help with her symptoms. Patient states that she feels like her ears are full on both sides. She also has had some nasal drainage and drainage in the back of her throat. TRAVEL OUTSIDE OF THE [place] IN LAST 30 DAYS: No - Related Data Allergies/Adverse Reactions: No Known Allergies Allergy (Verified 11/03/19 22:16) Past Medical History - General Information source: Patient - Social History Smoking Status: Never Smoker Chew tobacco use (# tins/day): No Frequency of alcohol use: None Drug Abuse: None Family History: CAD, CVA, Hyperlipidemia, Hypertension Patient has suicidal ideation: No Patient has homicidal ideation: No Renal/ Medical History: Denies: Hx Peritoneal Dialysis Past Surgical History: Reports: Hx Section - Immunizations Immunizations up to date: Yes Review of Systems - Review of Systems Notes: REVIEW OF SYSTEMS: CONSTITUTIONAL : See HPI. EENT: See HPI. CARDIOVASCULAR: See HPI. RESPIRATORY: Denies shortness of breath, cough, congestion, difficulty breathing, or wheezing. GASTROINTESTINAL: Denies nausea, vomiting, and diarrhea. Denies abdominal pain. Denies constipation. GENITOURINARY: Denies difficulty urinating, burning, blood in urine, urgency or frequency. MUSCULOSKELETAL: See HPI. Denies joint pain or swelling. SKIN: Denies rash, itchiness, or lesions HEMATOLOGIC : Denies easy bruising or bleeding. LYMPHATIC: Denies swollen, painful, enlarged glands. NEUROLOGICAL: Denies no numbness or tingling denies weakness. Denies headache. Denies altered mental status. Denies alteration in speech. PSYCHIATRIC: Denies stress, anxiety, alteration in sleep patterns, or depression. All other systems reviewed and negative. Physical Exam - Vital signs Vitals: Temp Pulse Resp BP Pulse Ox 97.6 F 89 20 136/87 H 100 11/03/19 21:04 11/03/19 21:04 11/03/19 21:04 11/03/19 21:04 11/03/19 21:04 - Notes Notes: PHYSICAL EXAMINATION: GENERAL: Appears well, healthy, well-nourished, no acute distress. HEAD: Normocephalic, atraumatic. EYES: PERRL, conjunctiva normal, all extraocular movements intact, sclera nonicteric ENT: Moist mucous membranes. Injected left tympanic membrane. Erythema and edema noted to nasal mucosa. NECK: Supple, no noticeable swelling, redness, rash. Normal range of motion. LUNGS: Equal breath sounds bilaterally and clear to auscultation. No wheezes rales or rhonchi. CARDIOVASCULAR: S1-S2, regular rate, regular rhythm. Radial pulses 2+, normal. ABDOMEN: Normoactive bowel sounds. Soft, nontender, no guarding, no rebound tenderness, and no masses palpated. EXTREMITIES: Normal strength and range of motion, no pitting or edema. No cyanosis. NEUROLOGICAL: Moves all extremities upon command. Strength 5/5 in all extremities. PSYCH: Normal mood, normal affect. SKIN: Warm, dry. No rash, lesions, ulcerations noted. Normal skin turgor. Course - Re-evaluation Re-evalutation: 11/04/19 Hematology is unremarkable. Chemistries are also unremarkable with a troponin that was ordered in triage that is negative. Urinalysis is also negative. Influenza screens are negative. Patient does have an injected left tympanic membrane. No mastoid tenderness noted. Patient will be started on amoxicillin. Discussed labs with the patient. She will follow-up with her primary care provider. Follow-up precautions were given. Verbal discharge instructions were given to the patient. They verbalized understanding. [facility] - Vital Signs Vital signs: Temp Pulse Resp BP Pulse Ox 98.1 F 87 16 124/73 97 11/04/19 02:21 11/04/19 02:21 11/04/19 02:21 11/04/19 02:21 11/04/19 02:21 - Laboratory Result Diagrams: 11/03/19 23:00 11/03/19 23:00 Laboratory results interpreted by me: 11/03/19 11/03/19 23:00 23:00 RBC 5.46 H Urine Ascorbic Acid 40 H Discharge - Discharge Clinical Impression: Rhinorrhea Left otitis media Qualifiers: Otitis media type: unspecified Qualified Code(s): H66.92 - Otitis media, unspecified, left ear Condition: Stable Disposition: HOME, SELF-CARE Additional Instructions: You were seen today in the emergency department and have an acute ear infection. Please take the antibiotic that has been prescribed until it is completed even if you are feeling better before you have finished all the antibiotics. For your pain: Take ibuprofen 600 mg and acetaminophen 1000 mg every 6 hours together as needed for pain. Return if you have worsening of your pain, loss of hearing in the affected ear, worsening facial pain, headaches, pass out, or any other symptoms that are worrisome to you. Your chest x-ray and labs are normal. Please also take Flonase and your Heidi to help with controlling your symptoms. Prescriptions: Amoxicillin Trihydrate [Amoxil 875 mg Tablet] 1 tab PO BID #20 tablet Fluticasone Propionate [Flonase Nasal Perry 50 Mcg/Perry 16 gm] 2 sprays NASL DAILY #1 inhaler Forms: Return to Work Referrals: CASTRO LLANOS MD [ACTIVE STAFF] - Follow up as needed
[2019-11-04 02:21] VITALS: BP 124/73
--- NOTE | 2019-11-04 08:08 | EKG REPORT ---
SEVERITY:- NORMAL ECG - SINUS RHYTHM : Confirmed by: Darwin Leyva MD 04-Nov-2019 08:07:46
== END 2019-11-04 02:21 | disposition home or self-care (01) ==
LOC: ER 20:51
DX: J34.89 Other specified disorders of nose and nasal sinuses (principal); H66.92 Otitis media, unspecified, left ear; R07.9 Chest pain, unspecified; R06.02 Shortness of breath; M54.9 Dorsalgia, unspecified
CPT/HCPCS: 36415; 71046; 80053; 81001; 81025; 84484; 85025; 87804; 93005; 93010; 99284

== ENCOUNTER 2020-06-09 19:45 | Emergency (ER) | payer OTHER ==
[2020-06-09] MEDS ORDERED: ONDANSETRON 4 MG TAB.RAPDIS PO ONE (21:00)
[2020-06-09] MEDS ORDERED: HYDROCODONE/ACETAMINOPHEN 5-325 MG TABLET PO ONE (21:00)
--- NOTE | 2020-06-09 21:02 | ER Document Report ---
ED Medical Screen (RME) - General Chief Complaint: Post Surgical Pain Stated Complaint: POST OP PAIN Time Seen by Provider: 06/09/20 20:56 Notes: Patient presents with left lower pelvic pain that radiates around to left lower back area. Patient reports that pain has been off and on for the past 11 months since having a . Patient states that her pain started today and her last episode of pain was 10 days ago. Patient reports nausea without vomiting or diarrhea. Patient denies any urinary symptoms. Patient denies any fever. I have greeted and performed a rapid initial assessment of this patient. A comprehensive ED assessment and evaluation of the patient, analysis of test results and completion of the medical decision making process will be conducted by additional ED providers. TRAVEL OUTSIDE OF THE [place] IN LAST 30 DAYS: No - Related Data Allergies/Adverse Reactions: No Known Allergies Allergy (Verified 11/03/19 22:16) Past Medical History Renal/ Medical History: Denies: Hx Peritoneal Dialysis Past Surgical History: Reports: Hx Section - Immunizations Immunizations up to date: Yes Physical Exam - Vital signs Vitals: Temp Pulse Resp BP Pulse Ox 98.2 F 86 20 130/77 H 99 06/09/20 20:00 06/09/20 20:00 06/09/20 20:00 06/09/20 20:00 06/09/20 20:00 - Abdominal Tenderness: Tender - Left lower pelvic tenderness - Back Back: Tender - Lower lumbar paraspinal tenderness Course - Vital Signs Vital signs: Temp Pulse Resp BP Pulse Ox 98.2 F 86 20 130/77 H 99 06/09/20 20:00 06/09/20 20:00 06/09/20 20:00 06/09/20 20:00 06/09/20 20:00
[2020-06-09 22:30] LABS: ABSOLUTE BASOPHILS # (AUTO) 0.1 10^3/uL (0.0-0.2); ABSOLUTE EOSINOPHILS # (AUTO) 0.2 10^3/uL (0.0-0.6); ABSOLUTE MONOCYTES (AUTO) 0.6 10^3/uL (0.1-1.4); ABSOLUTE NEUT (AUTO) 3.7 10^3/uL (1.7-8.2); BASOPHILS % (AUTO) 0.7 % (0-2); EOSINOPHILS % (AUTO) 3.2 % (0-6); HEMATOCRIT 42.5 % (36.0-47.0); HEMOGLOBIN 14.1 g/dL (12.0-15.5); LYMPHOCYTES % (AUTO) 38.8 % (13-45); MEAN CORPUSCULAR HEMOGLOBIN 26.9 pg (27.0-33.4); MEAN CORPUSCULAR HGB CONC 33.2 g/dL (32.0-36.0); MEAN CORPUSCULAR VOLUME 81 fl (80-97); MONOCYTES % (AUTO) 8.2 % (3-13); PLATELET COUNT 257 10^3/uL (150-450); RED BLOOD COUNT 5.24 10^6/uL (3.72-5.28); RED CELL DISTRIBUTION WIDTH 13.3 % (11.5-14.0); SEGMENTED NEUTROPHILS % (AUTO) 49.1 % (42-78); TOTAL CELLS COUNTED % (AUTO) 100 %; WHITE BLOOD COUNT 7.6 10^3/uL (4.0-10.5)
[2020-06-09 22:53] LABS: ALBUMIN 4.7 g/dL (3.5-5.0); ALKALINE PHOSPHATASE 53 U/L (38-126); ANION GAP 11 (5-19); ASPARTATE AMINO TRANSFERASE 22 U/L (14-36); BILIRUBIN,DIRECT 0.2 mg/dL (0.0-0.4); BILIRUBIN,TOTAL 0.5 mg/dL (0.2-1.3); BLOOD UREA NITROGEN 12 mg/dL (7-20); CALCIUM 9.5 mg/dL (8.4-10.2); CARBON DIOXIDE 24 mmol/L (22-30); CHLORIDE 105 mmol/L (98-107); GLUCOSE 96 mg/dL (75-110); TOTAL PROTEIN 7.6 g/dL (6.3-8.2)
--- NOTE | 2020-06-09 23:28 | RADIOLOGY REPORT (SQ) ---
US PELVIS TRANSVAGINAL HISTORY: 29 years Female left lower quadrant pain. COMPARISON: No relevant studies are available for comparison. Technique: Endovaginal Imaging of the pelvis was performed. Color and spectral imaging was performed. Uterus: The uterus measures 9.2 x 4.6 x 4.5 cm. Small the both and cysts are seen in the lower uterine segment. The cervix is closed and measures 2.9 cm. The endometrium is abnormally thickened measuring 15 mm. Right Ovary: Measures 4.3 x 3.5 x 4.6 cm. No definitive follicles are noted.. Normal color and spectral doppler waveforms Left Ovary: The ovary measures 3.4 x 2.3 x 2.2 cm and contains small follicles.. Normal color and spectral doppler waveforms Other: No free fluid. No adnexal mass. IMPRESSION: Thickened endometrium. The remainder the exam is unremarkable.
[2020-06-10] MEDS ORDERED: ONDANSETRON 4 MG TAB.RAPDIS PO ONE (02:30)
[2020-06-10] MEDS ORDERED: HYDROCODONE/ACETAMINOPHEN 5-325 MG TABLET PO ONE (02:30)
[2020-06-10 04:45] LABS: APPEARANCE,URINE CLEAR; BILIRUBIN,URINE NEGATIVE (NEGATIVE); COLOR,URINE STRAW; GLUCOSE, URINE NEGATIVE (NEGATIVE); KETONES,URINE NEGATIVE (NEGATIVE); LEUKOCYTE ESTERASE,URINE NEGATIVE (NEGATIVE); NITRITE,URINE NEGATIVE (NEGATIVE); PROTEIN,URINE NEGATIVE (NEGATIVE); URINE SPECIFIC GRAVITY 1.004; UROBILINOGEN,URINE NEGATIVE mg/dL (<2.0)
--- NOTE | 2020-06-10 05:13 | RADIOLOGY REPORT (SQ) ---
CLINICAL HISTORY: LEFT SIDE ABD PAIN. HCG NEG COMPARISON: None. TECHNIQUE: CT ABDOMEN PELVIS WITH IV CONTRAST on 06/10/2020 3:53 AM CDT This exam was performed according to our departmental dose-optimization program, which includes automated exposure control, adjustment of the mA and/or kV according to patient size and/or use of iterative reconstruction technique. FINDINGS: Lower lungs are clear. Abdomen: The liver is normal in appearance. There is no biliary dilatation. Gallbladder is normal in appearance. The pancreas and spleen are normal in appearance. The adrenal glands and kidneys are unremarkable. Abdominal aorta is normal in course and caliber without aneurysm. There is no free air. There is no retroperitoneal adenopathy. Pelvis: There is no bowel obstruction. Urinary bladder is unremarkable. There is no free fluid. Uterus is normal in size. Appendix is normal. Skeleton: There are no acute osseous findings. No suspicious bony lesions. IMPRESSION: No definite acute process.
--- NOTE | 2020-06-10 05:53 | ER Document Report ---
ED GI/ - General Chief Complaint: Abdominal Pain Stated Complaint: POST OP PAIN Time Seen by Provider: 06/09/20 20:56 Mode of Arrival: Wheelchair Information source: Patient, Relative Notes: Patient is a 29-year-old female brought into the emergency room by her with complaint of left-sided abdominal pain. and /patient states that she had a approximately 11 months ago. Since that time patient has had increasing intensity of pain on her left lower side. They state that it stems from the end of her scar and runs to the left side to the back. They have followed up with her primary care provider they have followed up with her RESPIRATORY PHYSICIAN and have had ultrasounds and labs done and they always tell them that it is normal and it is a pulled muscle. Patient states that today the pain got so intense that she could hardly walk. She does state that she has established a appointment with another RESPIRATORY PHYSICIAN in [place] in the middle of June. Patient states that she has been told that is possibly related to the surgery. She states the people of told her that she probably needs to have an exploratory laparotomy for adhesions. Patient denies any nausea vomiting or diarrhea she denies any other surgeries in the belly with exception of the 11 months ago. TRAVEL OUTSIDE OF THE [place] IN LAST 30 DAYS: No - HPI Patient complains to provider of: Abdominal pain Timing/Duration: Gradual, Persistent Severity at maximum: Severe Severity in ED: Severe Pain Level: 4 Location: LLQ, Left flank Vaginal bleeding (Compared to normal period): None Menstrual period history: Abnormal - Related Data Allergies/Adverse Reactions: No Known Allergies Allergy (Verified 11/03/19 22:16) Past Medical History - General Information source: Patient, Relative - Social History Smoking Status: Never Smoker Cigarette use (# per day): No Chew tobacco use (# tins/day): No Smoking Education Provided: No Frequency of alcohol use: None Drug Abuse: None Lives with: Family Family History: CAD, CVA, Hyperlipidemia, Hypertension Renal/ Medical History: Denies: Hx Peritoneal Dialysis Past Surgical History: Reports: Hx Section - Immunizations Immunizations up to date: Yes Review of Systems - Review of Systems -: Yes ROS unobtainable due to patient's medical condition Constitutional: No symptoms reported EENT: No symptoms reported Cardiovascular: No symptoms reported Respiratory: No symptoms reported Gastrointestinal: See HPI, Abdominal pain Genitourinary: No symptoms reported Female Genitourinary: No symptoms reported Musculoskeletal: No symptoms reported Skin: No symptoms reported Hematologic/Lymphatic: No symptoms reported Neurological/Psychological: No symptoms reported -: Yes All other systems reviewed and negative Physical Exam - Vital signs Vitals: Temp Pulse Resp BP Pulse Ox 98.2 F 86 20 130/77 H 99 06/09/20 20:00 06/09/20 20:00 06/09/20 20:00 06/09/20 20:00 06/09/20 20:00 Interpretation: Hypertensive - Notes Notes: PHYSICAL EXAMINATION: GENERAL: Patient is a well-nourished well-developed 29-year-old female no apparent distress on physical exam but she does appear very uncomfortable in obvious pain. Patient is holding her left side and doubled over in the wheelchair. HEAD: Atraumatic, normocephalic. EYES: Pupils equal round and reactive to light, extraocular movements intact, conjunctiva are normal. ENT: Nares patent, oropharynx clear without exudates. Moist mucous membranes. NECK: Normal range of motion, supple without lymphadenopathy LUNGS: Breath sounds clear to auscultation bilaterally and equal. No wheezes rales or rhonchi. HEART: Regular rate and rhythm without murmurs ABDOMEN: Examination patient's abdomen shows bowel sounds present all 4 quads. She is nontender suprapubically to palpation. Patient does have a moderate amount of discomfort when palpation around her surgical C scar. It is more towards the left side of her body. Applying pressure to the area and or pushing stretching the area and hip apart patient has increased amount of pain in almost 2 years. Female : deferred Musculoskeletal: Normal range of motion, no pitting or edema. No cyanosis. NEUROLOGICAL: t. Normal speech, normal gait. Normal sensory, motor exams PSYCH: Normal mood, normal affect. SKIN: Warm, Dry, normal turgor, no rashes or lesions noted. Course - Re-evaluation Re-evalutation: 06/10/20 05:58 I had a long discussion with the and patient and informed him that adhesions are diagnoses of exclusion. There is no testing we can do to show that this was going on except for them to go in and surgically viewed the area with the scope. We will try her on some muscle relaxer little pain medication because she is definitely in discomfort. She can follow-up with her primary care doctor and her surgeon that she has an appointment with in [place] for a second opinion. - Vital Signs Vital signs: Temp Pulse Resp BP Pulse Ox 97.7 F 65 18 113/64 100 06/10/20 04:48 06/10/20 04:48 06/10/20 04:48 06/10/20 04:48 06/10/20 04:48 - Laboratory Result Diagrams: 06/09/20 22:08 06/09/20 22:08 Laboratory results interpreted by me: 06/09/20 22:08 MCH 26.9 L Discharge - Discharge Clinical Impression: Abdominal adhesions Abdominal pain Qualifiers: Abdominal location: unspecified location Qualified Code(s): R10.9 - Unspecified abdominal pain Condition: Stable Disposition: HOME, SELF-CARE Instructions: Abdominal Pain ([facility]) Additional Instructions: As we discussed you had an ultrasound was negative your labs are negative urine is clean and your CT abdomen and pelvis shows no acute findings. This is still going along with a we have discussed that this to be a adhesion color presentation from your surgery for having a . Prescriptions: Hydrocodone/Acetaminophen [Clifton 5-325 Tablet] 1 each PO Q6 PRN #20 tablet PRN Reason: Methocarbamol [Robaxin 750 mg Tablet] 750 mg PO TID PRN #21 tablet PRN Reason: Forms: Return to Work Referrals: ANGEL BREWSTER MD [ACTIVE STAFF] - Follow up as needed
[2020-06-10 06:21] VITALS: BP 121/67
== END 2020-06-10 06:21 | disposition home or self-care (01) ==
LOC: ER 19:45
DX: K66.0 Peritoneal adhesions (postprocedural) (postinfection) (principal); R10.32 Left lower quadrant pain
CPT/HCPCS: 99285; 36415; 84703; 85025; 80053; 81001; 76830; 93976; 74177; S0119

== ENCOUNTER 2020-06-23 05:16 | Day surgery (SDC) | payer OTHER ==
[2020-06-18 09:45] LABS: ABSOLUTE EOSINOPHILS # (AUTO) 0.2 10^3/uL (0.0-0.6); ABSOLUTE LYMPHOCYTES (AUTO) 1.7 10^3/uL (0.5-4.7); ABSOLUTE MONOCYTES (AUTO) 0.5 10^3/uL (0.1-1.4); ABSOLUTE NEUT (AUTO) 2.8 10^3/uL (1.7-8.2); BASOPHILS % (AUTO) 0.8 % (0-2); EOSINOPHILS % (AUTO) 4.8 % (0-6); HEMATOCRIT 39.5 % (36.0-47.0); HEMOGLOBIN 13.5 g/dL (12.0-15.5); LYMPHOCYTES % (AUTO) 32.4 % (13-45); MEAN CORPUSCULAR HEMOGLOBIN 27.4 pg (27.0-33.4); MEAN CORPUSCULAR HGB CONC 34.1 g/dL (32.0-36.0); MEAN CORPUSCULAR VOLUME 80 fl (80-97); MONOCYTES % (AUTO) 8.8 % (3-13); PLATELET COUNT 219 10^3/uL (150-450); RED BLOOD COUNT 4.93 10^6/uL (3.72-5.28); RED CELL DISTRIBUTION WIDTH 13.6 % (11.5-14.0); SEGMENTED NEUTROPHILS % (AUTO) 53.2 % (42-78); TOTAL CELLS COUNTED % (AUTO) 100 %; WHITE BLOOD COUNT 5.2 10^3/uL (4.0-10.5)
[2020-06-18 10:13] LABS: ANION GAP 9 (5-19); BLOOD UREA NITROGEN 10 mg/dL (7-20); CALCIUM 9.3 mg/dL (8.4-10.2); CARBON DIOXIDE 25 mmol/L (22-30); CHLORIDE 106 mmol/L (98-107); GLUCOSE 90 mg/dL (75-110)
[~2020-06-23 05:16] MED LIST: CEFAZOLIN 2 GM/D5W RTU 2 GM/50 ML RTUPB IV PRN; LACTATED RINGERS 1000 ML IV PRN; LIDOCAINE 0.5% INJ-PF (5 MG/ML) 50 ML SDV SUBCUT PRN; METRONIDAZOLE 500 MG/NS RTU 500 MG/100 ML RTUPB IV PRN
[2020-06-23] MEDS ORDERED: METRONIDAZOLE 500 MG/NS RTU 500 MG/100 ML RTUPB IV ONE (05:17)
[2020-06-23] MEDS ORDERED: CEFAZOLIN 2 GM/D5W RTU 2 GM/50 ML RTUPB IV ONE (05:17)
[2020-06-23] MEDS ORDERED: EPHEDRINE SULFATE INJ 50 MG/1 ML AMPULE ONE (06:41)
[2020-06-23] MEDS ORDERED: FENTANYL CITRATE INJ/PF 250 MCG/5 ML AMPULE ONE (06:41)
[2020-06-23] MEDS ORDERED: MIDAZOLAM 2 MG/2 ML INJ ONE (06:41)
[2020-06-23] MEDS ORDERED: HYDROMORPHONE HCL INJ/PF 2 MG/ML AMPULE ONE (06:41)
[2020-06-23] MEDS ORDERED: PROPOFOL INJ 200 MG/20 ML VIAL IV ONE (06:42)
[2020-06-23] MEDS ORDERED: BUPIVACAINE HCL 0.5 % INJ/PF 30 ML SDV ONE (07:17)
[2020-06-23] MEDS ORDERED: TRIAMCINOLONE ACETONIDE INJ 40 MG/1 ML VIAL ONE (07:17)
[2020-06-23] MEDS ORDERED: DIPHENHYDRAMINE HCL 50 MG/ML VIAL IV PRN (08:01)
[2020-06-23] MEDS ORDERED: MEPERIDINE HCL/PF INJ 25 MG/1 ML DISP.SYRIN IV PRN (08:01)
[2020-06-23] MEDS ORDERED: ONDANSETRON HCL INJ/PF 4 MG/2 ML SDV IV PRN (08:01)
[2020-06-23] MEDS ORDERED: FENTANYL CITRATE INJ/PF 100 MCG/2 ML AMPUL IV PRN ×3 (08:01)
[2020-06-23] MEDS ORDERED: PROMETHAZINE HCL INJ 25 MG/1 ML VIAL IV PRN ×2 (08:01)
[2020-06-23] MEDS ORDERED: MORPHINE SULFATE 10 MG/ML INJ IV PRN (08:01)
--- NOTE | 2020-06-23 08:08 | Operative Report ---
Nonrecallable Operative Report DATE OF SURGERY: 06/23/20 PREOPERATIVE DIAGNOSIS: groin pain POSTOPERATIVE DIAGNOSIS: left groin pain OPERATION: diagnostic laparoscopy injection of left groin scar with kenolog SURGEON: GARTH SILVA 1ST ALUMINUM SIDING APPLICATOR: JUAN RACHEL ANESTHESIA: GA TISSUE REMOVED OR ALTERED: none COMPLICATIONS: none ESTIMATED BLOOD LOSS: 0 INTRAOPERATIVE FINDINGS: see note PROCEDURE: Patient was brought to the operating awake alert stable condition placed in the operative supine position induced under general anesthesia intubated. The Loja catheter was placed and the abdomen was prepped and draped in usual sterile fashion. After appropriate timeout site verification the procedure commenced. A varies needle was placed into the umbilicus and the abdomen was insufflated with 6 L of CO2 gas. A supraumbilical 5 mm incision was made with a 15 blade and a 5 mm port placed in the abdominal cavity intra-abdominal visualization revealed no evidence of a varies needle or trocar injury. Another 5 mm port was placed on the right lateral abdominal wall. Through this port we used the manipulator to manipulate the small bowel and examine the pelvis. The pelvis was examined anteriorly there was some subtle evidence of scar but there is no evidence of any hernia no incarcerated small bowel no omentum incarcerated not even a single adhesion. There were small bowel in the pelvis as well as colon the colon was fixed to the lateral abdominal wall with the normal peritoneal attachments but there was no small bowel that was adhesed to the anterior abdominal wall. It was lying free in the pelvis. Patient was placed and then Trendelenburg we allowed the small bowel to be retracted up to the upper abdomen and examined the right and left ovary as well as the uterus which appeared to be normal there was no scarring of that the right ovary appeared to be had normal except for some niesha-tube pole cyst that were small less than a centimeter diameter the left ovary appeared to be normal with no evidence of adhesions or twisting or excrescences. Because we cannot find anything intra-abdominally I elected to inject to the lateral scar on the left side with Kenalog and bupivacaine mixture using the scope to guide me I injected into the preperitoneal space and then into the subcutaneous tissue and muscle on the left side using approximately 10 cc of a bupivacaine 40 mg/cc mixture and then an additional 10 cc of bupivacaine half percent. At the termination of this we reduce the pneumoperitoneum and closed the 2 skin incisions with 4-0 Monocryl Steri-Strips completed the procedure estimated blood loss was negligible sponge needle counts correct x2 patient was awakened in the operating extubated transferred recovery in stable condition no complication CARL Herrera was present for the entire procedure for help with wound retraction and wound closure
--- NOTE | 2020-06-23 08:09 | Discharge Summary ---
Discharge Summary (SDC) - Discharge Final Diagnosis: Left groin pain Date of Surgery: 06/23/20 Discharge Date: 06/23/20 Condition: Good Discharge Diet: As Tolerated Report the Following to Your Physician Immediately: Shortness of Breath, Nausea, Vomiting, Increase in Pain - Follow-up in surgical clinic in 2 to 3 weeks
[2020-06-23] MEDS ORDERED: OXYCODONE-ACETAMINOPHEN 5-325 MG TABLET PO PRN (08:12)
[2020-06-23] MEDS ORDERED: OXYCODONE-ACETAMINOPHEN 5-325 MG TABLET ONE (08:48)
[2020-06-23] MEDS ORDERED: SCOPOLAMINE HYDROBROMIDE 1.5 MG PATCH.TD72 ONE (10:06)
[2020-06-23 10:27] VITALS: BP 120/76
[2020-06-23] MEDS ORDERED: SCOPOLAMINE HYDROBROMIDE 1.5 MG PATCH.TD72 TD ONE (10:30)
[2020-06-23] MEDS ORDERED: KETOROLAC TROMETHAMINE 60 MG/2 ML SDV ONE (10:59)
[2020-06-23] MEDS ORDERED: DIPHENHYDRAMINE HCL 50 MG/ML VIAL ONE (10:59)
[2020-06-23] MEDS ORDERED: SUCCINYLCHOLINE CHLORIDE INJ 200 MG/10 ML VIAL ONE (10:59)
[2020-06-23] MEDS ORDERED: ONDANSETRON HCL INJ/PF 4 MG/2 ML SDV ONE (10:59)
[2020-06-23] MEDS ORDERED: DEXAMETHASONE SOD PHOSPHATE INJ 4 MG/1 ML VIAL ONE (10:59)
[2020-06-23] MEDS ORDERED: ROCURONIUM BROMIDE INJ 50 MG/5 ML VIAL IV ONE (10:59)
[2020-06-23] MEDS ORDERED: GLYCOPYRROLATE 1 MG/5 ML VIAL ONE (10:59)
[2020-06-23] MEDS ORDERED: NEOSTIGMINE METHYLSULFATE 10 MG/10 ML VIAL ONE (10:59)
== END 2020-06-23 10:25 | disposition home or self-care (01) ==
LOC: OROUT 05:16
PROVIDERS: ATTEND Surgery
DX: R10.30 Lower abdominal pain, unspecified (principal); L90.5 Scar conditions and fibrosis of skin; K66.0 Peritoneal adhesions (postprocedural) (postinfection); N83.291 Other ovarian cyst, right side; Z03.818 Encounter for observation for suspected exposure to other biological agents ruled out
CPT/HCPCS: 49320; 96372; 36415; 85025; 87635; 81025; 80048; 00840; C1758; J2250; J3490 ×4; J1100; J1200; J1885; J3010; J2710; J0330; J2405; J3301; J2704; J0690; C9803; 840; J1170